=== PATIENT | female | born 1985 | race Caucasian/White ===

== ENCOUNTER 2018-08-12 15:11 | Emergency (ER) | payer MEDICAID ==
[~2018-08-12] VITALS: Ht 170.2 cm; Wt 78.2 kg
[2018-08-12 15:23] VITALS: BP 132/89
[2018-08-12] MEDS ORDERED: MUPI22OI30 TOP (15:52)
[2018-08-12] MEDS ORDERED: DOXY100C2 PO (15:52)
== END 2018-08-12 16:03 | disposition home or self-care (01) ==
LOC: ER 15:12
DX: S81.802A Unspecified open wound, left lower leg, initial encounter (principal); R22.42 Localized swelling, mass and lump, left lower limb; Z88.1 Allergy status to other antibiotic agents; Z79.899 Other long term (current) drug therapy; X58.XXXA Exposure to other specified factors, initial encounter; Y93.89 Activity, other specified; Y92.89 Other specified places as the place of occurrence of the external cause; Y99.8 Other external cause status
CPT/HCPCS: 99283

== ENCOUNTER 2018-10-06 03:22 | Emergency (ER) | payer MEDICAID ==
[~2018-10-06] VITALS: Ht 170.2 cm; Wt 72.2 kg
[2018-10-06 03:25] VITALS: BP 120/77
[2018-10-06 03:52] LABS: URINE HCG NEGATIVE (NEG)
[2018-10-06 03:56] LABS: CLARITY,URINE SLIGHTLY CLOUDY (Clear); COLOR,URINE YELLOW (Yellow); GLUCOSE, URINE NEGATIVE (Neg); KETONES,URINE NEGATIVE (Neg); LEUKOCYTE ESTERASE ,URINE NEGATIVE (Neg); NITRITES, URINE NEGATIVE (Neg); OCCULT BLOOD,URINE NEGATIVE (Neg); PH,URINE 8.5 (4.8-8.0); PROTEIN,URINE TRACE mg/dl (Neg); UROBILINOGEN,URINE 0.2 E.U/dL (0.2-1.0)
[2018-10-06 04:01] LABS: UA COLLECTION TYPE VOIDED
[2018-10-06 04:02] LABS: BACTERIA,URINE FEW /HPF (Neg); MUCUS STRANDS FEW /LPF (Neg); RBC,URINE NONE SEEN /HPF (0-2); SQUAMOUS EPITHELIAL CELL,UR MODERATE /LPF (FEW); WBC,URINE NONE SEEN /HPF (0-4)
[2018-10-06] MEDS ORDERED: ketorolac trometh inj. 60 MG/2 ML VIAL IM ONE (04:15)
== END 2018-10-06 04:29 | disposition home or self-care (01) ==
LOC: ER 03:23
DX: R10.32 Left lower quadrant pain (principal); J45.909 Unspecified asthma, uncomplicated; Z88.1 Allergy status to other antibiotic agents
CPT/HCPCS: 81001; 81025; 96372; 99283; J1885

== ENCOUNTER 2018-12-03 08:46 | Emergency (ER) | payer MEDICAID ==
[~2018-12-03] VITALS: Ht 170.2 cm; Wt 75.0 kg
[2018-12-03 09:02] VITALS: BP 129/89
== END 2018-12-03 10:04 | disposition home or self-care (01) ==
LOC: ER 08:46
DX: N64.59 Other signs and symptoms in breast (principal); J45.909 Unspecified asthma, uncomplicated; Z88.1 Allergy status to other antibiotic agents
CPT/HCPCS: 99281

== ENCOUNTER 2019-07-04 13:53 | Emergency (ER) | payer MEDICAID ==
[~2019-07-04] VITALS: Ht 170.2 cm; Wt 69.0 kg
[2019-07-04 14:17] VITALS: BP 111/71
[2019-07-04] MEDS ORDERED: CLIN35GE3 TP (16:03)
== END 2019-07-04 16:15 | disposition home or self-care (01) ==
LOC: ER 13:54
DX: L70.9 Acne, unspecified (principal); J45.909 Unspecified asthma, uncomplicated; F31.9 Bipolar disorder, unspecified; Z88.1 Allergy status to other antibiotic agents; Z79.2 Long term (current) use of antibiotics
CPT/HCPCS: 99283

== ENCOUNTER 2020-04-13 12:54 | Emergency (ER) | payer MEDICAID ==
[~2020-04-13] VITALS: Ht 170.2 cm; Wt 54.8 kg
[~2020-04-13 12:54] MED LIST: CLIN35GE3 TP
[2020-04-13 12:55] VITALS: BP 113/80
[2020-04-13] MEDS ORDERED: pramoxine 1% foam spray 15gm TP PRN (14:05)
== END 2020-04-13 14:46 | disposition home or self-care (01) ==
LOC: ER 12:55
DX: K64.9 Unspecified hemorrhoids (principal); J45.909 Unspecified asthma, uncomplicated; F31.9 Bipolar disorder, unspecified; Z98.890 Other specified postprocedural states; Z88.1 Allergy status to other antibiotic agents; Z79.899 Other long term (current) drug therapy
CPT/HCPCS: 99282

== ENCOUNTER 2021-07-20 02:11 | Emergency (ER) | payer MEDICAID ==
[~2021-07-20] VITALS: Ht 175.3 cm; Wt 60.0 kg
[2021-07-20] MEDS ORDERED: normal saline 1000ml 1,000 ML IV ONE (02:20)
[2021-07-20] MEDS ORDERED: LORazepam 2 mg/ml vial IV ONE (02:20)
[2021-07-20] MEDS ORDERED: normal saline 1000ML IV soln IVB ONE (02:20)
[2021-07-20] MEDS ORDERED: LORazepam 1 MG tablet PO ONE (02:40)
[2021-07-20] MEDS: LORazepam 1 MG tablet PO ONE ×2 (02:45→02:53)
[2021-07-20] MEDS ORDERED: haloperidol lactate 5mg/ml inj IM ONE ×2 (03:05→03:10)
[2021-07-20] MEDS ORDERED: diphenhydrAMINE 50 mg/ml inj IM ONE ×2 (03:05→03:10)
[2021-07-20] MEDS ORDERED: LORazepam 2 mg/ml vial IM ONE ×2 (03:10)
[2021-07-20 04:03] LABS: URINE HCG NEGATIVE (NEG)
[2021-07-20 04:07] LABS: CLARITY,URINE SLIGHTLY CLOUDY (Clear); COLOR,URINE YELLOW (Yellow); UA COLLECTION TYPE CLN CATCH MIDSTREAM
[2021-07-20 04:08] LABS: GLUCOSE, URINE NEGATIVE (Neg); KETONES,URINE TRACE mg/dl (Neg); LEUKOCYTE ESTERASE ,URINE NEGATIVE (Neg); NITRITES, URINE NEGATIVE (Neg); OCCULT BLOOD,URINE TRACE-INTACT (Neg); PROTEIN,URINE TRACE mg/dl (Neg); UROBILINOGEN,URINE 0.2 E.U/dL (0.2-1.0)
[2021-07-20 04:12] LABS: BACTERIA,URINE 2+ /HPF (Neg); MUCUS STRANDS MODERATE /LPF (Neg); SQUAMOUS EPITHELIAL CELL,UR MODERATE /LPF (FEW); TRANSITIONAL EPI CELLS,URINE FEW /HPF
[2021-07-20 04:14] LABS: URINE AMPHETAMINE SCREEN POSITIVE (Neg); URINE BARBITUATE SCREEN NEGATIVE (Neg); URINE BENZODIAZEPINES SCREEN NEGATIVE (Neg); URINE CANNABINOID SCREEN NEGATIVE (Neg); URINE COCAINE SCREEN NEGATIVE (Neg); URINE METHADONE SCREEN NEGATIVE (Neg); URINE OPIATE SCREEN NEGATIVE (Neg); URINE PHENCYCLIDINE SCREEN NEGATIVE (Neg)
[2021-07-20 04:54] LABS: BASOPHILS % (AUTO) 0.5 % (0-1); EOSINOPHILS % (AUTO) 0.1 % (0-6); HEMATOCRIT 43.2 % (35.0-45.0); HEMOGLOBIN 14.9 g/dl (12.0-16.0); LYMPHOCYTES # (AUTO) 1.4 X10'3 (1.1-4.8); LYMPHOCYTES % (AUTO) 14.4 % (21-51); MEAN CORPUSCULAR HEMOGLOBIN 32.4 PG (27.0-31.0); MEAN CORPUSCULAR HGB CONC 34.4 g/dL (33.0-36.5); MEAN CORPUSCULAR VOLUME 94.1 FL (78-98); MEAN PLATELET VOLUME 7.9 FL (7.4-10.4); MONOCYTES # (AUTO) 0.6 X10'3 (0-0.9); MONOCYTES % (AUTO) 5.8 % (2-12); NEUTROPHILS # (AUTO) 7.8 X10'3 (1.8-7.7); NEUTROPHILS % (AUTO) 79.2 % (42-75); PLATELET COUNT 268 X10'3 (140-440); RED BLOOD COUNT 4.59 X10'6 (4.20-5.60); RED CELL DISTRIBUTION WIDTH 13.3 % (11.5-14.5); WHITE BLOOD COUNT 9.8 X10'3 (4.5-11.0)
[2021-07-20 05:04] LABS: ALANINE AMINOTRANSFERASE 30 U/L (12-78); ALBUMIN 3.9 G/DL (3.4-5.0); ALBUMIN/GLOBULIN RATIO 1.1 (1.1-1.5); ALKALINE PHOSPHATASE 85 IU/L (46-116); ANION GAP 16 (8-16); ASPARTATE AMINO TRANSFERASE 44 U/L (10-37); BILIRUBIN,TOTAL 0.4 MG/DL (0.1-1.0); BLOOD UREA NITROGEN 15 MG/DL (7-18); BUN/CREATININE RATIO 16.9 (6.6-38.0); CALCIUM 8.9 MG/DL (8.5-10.1); CHLORIDE 107 MMOL/L (99-107); CREATININE 0.89 MG/DL (0.40-0.90); GLUCOSE 99 MG/DL (70-104); POTASSIUM 3.7 MMOL/L (3.5-5.1); SODIUM 148 MMOL/L (135-145); TOTAL CARBON DIOXIDE 25.4 MMOL/L (24-32); TOTAL PROTEIN 7.5 G/DL (6.4-8.2); eGFR 73 ML/MIN
[2021-07-20 05:14] LABS: ETHANOL < 0.010 GM/DL (0.0-0.010)
[2021-07-20 05:15] LABS: CREATINE KINASE 1149 U/L (26-192)
--- NOTE | 2021-07-20 12:09 | NUR ---
Patient sleeping on right side. No distress observed. Will evaluate patient when she awakens. Continue to monitor.
--- NOTE | 2021-07-20 13:10 | NUR ---
Patient offered lunch and patient slept through lunch. Continue to monitor.
--- NOTE | 2021-07-20 15:13 | NUR ---
Patient continues to sleep supine. No distress observed. Continue to monitor.
--- NOTE | 2021-07-20 20:48 | NUR ---
pt slept thru dinner, does not want to wake up and discuss anything.
--- NOTE | 2021-07-20 23:00 | NUR ---
pt appears to be sleeping, no s/s of distress noted.
--- NOTE | 2021-07-21 01:00 | NUR ---
pt appears to be sleeping, no s/s of distress noted.
--- NOTE | 2021-07-21 01:42 | NUR ---
pt awoke asking for food and a sanitary napkin. pt denies being suicidal or hearing voices.
--- NOTE | 2021-07-21 02:59 | NUR ---
pt is sleeping, needs are met.
--- NOTE | 2021-07-21 06:25 | NUR ---
Received patient sleeping comfortably, respirations even and unlabored.
--- NOTE | 2021-07-21 08:30 | NUR ---
Pt awake eating breakfast. [facility] at bedside. No distress or behaviors noted.
[2021-07-21 11:19] VITALS: BP 109/70
--- NOTE | 2021-07-21 11:31 | NUR ---
DISCHARGE NOTE: Pt was discharged from unit at 1030. Pt left with all personal belongings and was given weather appropriate clothing. Discharge instructions were reviewed with pt and ETOH/Substance abuse resources were given. Pt was A&Ox4. Yellow cab was called for pt and ETA for berry picker machine operator was 1040. Pt ambulated independently to outside round-about.
== END 2021-07-21 11:35 | disposition home or self-care (01) ==
LOC: ER 02:11
DX: F31.9 Bipolar disorder, unspecified (principal); R00.0 Tachycardia, unspecified; J45.909 Unspecified asthma, uncomplicated; Z98.890 Other specified postprocedural states; Z88.1 Allergy status to other antibiotic agents; Z79.2 Long term (current) use of antibiotics
CPT/HCPCS: 36415; 80053; 80305; 80320; 81001; 81025; 82550; 84145; 84443; 85025; 87088; 93005; 96360; 96361; 96372; 99284; J1200; J1630; J2060; J7030

== ENCOUNTER 2021-08-14 05:17 | Emergency (ER) | payer MEDICAID ==
[~2021-08-14] VITALS: Ht 167.6 cm; Wt 63.6 kg
[2021-08-14] MEDS ORDERED: haloperidol lactate 5mg/ml inj IM ONE (05:30)
[2021-08-14] MEDS ORDERED: diphenhydrAMINE 50 mg/ml inj IM ONE (05:30)
[2021-08-14] MEDS ORDERED: LORazepam 2 mg/ml vial IM ONE (05:30)
--- NOTE | 2021-08-14 06:33 | NUR ---
Report to ILENE Duenas
[2021-08-14 08:18] LABS: BASOPHILS % (AUTO) 0.3 % (0-1); EOSINOPHILS % (AUTO) 0 % (0-6); HEMATOCRIT 45.5 % (35.0-45.0); HEMOGLOBIN 15.5 g/dl (12.0-16.0); LYMPHOCYTES # (AUTO) 0.9 X10'3 (1.1-4.8); LYMPHOCYTES % (AUTO) 6.9 % (21-51); MEAN CORPUSCULAR HEMOGLOBIN 31.9 PG (27.0-31.0); MEAN CORPUSCULAR HGB CONC 33.9 g/dL (33.0-36.5); MEAN PLATELET VOLUME 7.6 FL (7.4-10.4); MONOCYTES # (AUTO) 0.8 X10'3 (0-0.9); MONOCYTES % (AUTO) 5.8 % (2-12); NEUTROPHILS # (AUTO) 11.7 X10'3 (1.8-7.7); PLATELET COUNT 313 X10'3 (140-440); RED BLOOD COUNT 4.85 X10'6 (4.20-5.60); RED CELL DISTRIBUTION WIDTH 13.2 % (11.5-14.5); WHITE BLOOD COUNT 13.4 X10'3 (4.5-11.0)
[2021-08-14 08:53] LABS: BILIRUBIN,TOTAL 0.4 MG/DL (0.1-1.0); CHLORIDE 108 MMOL/L (99-107); CREATININE 1.08 MG/DL (0.40-0.90); POTASSIUM 3.9 MMOL/L (3.5-5.1); SODIUM 142 MMOL/L (135-145); eGFR 58 ML/MIN
[2021-08-14 08:59] LABS: ALANINE AMINOTRANSFERASE 29 U/L (12-78); ALBUMIN 3.8 G/DL (3.4-5.0); ALBUMIN/GLOBULIN RATIO 1.1 (1.1-1.5); ALKALINE PHOSPHATASE 82 IU/L (46-116); ANION GAP 9 (8-16); ASPARTATE AMINO TRANSFERASE 22 U/L (10-37); TOTAL CARBON DIOXIDE 25.1 MMOL/L (24-32); TOTAL PROTEIN 7.3 G/DL (6.4-8.2)
[2021-08-14 09:00] LABS: ETHANOL < 0.010 GM/DL (0.0-0.010)
[2021-08-14 09:01] LABS: GLUCOSE 73 MG/DL (70-104)
[2021-08-14 09:04] LABS: BLOOD UREA NITROGEN 14 MG/DL (7-18)
--- NOTE | 2021-08-14 14:20 | NUR ---
Swallow eval Pt. was able to tolerate thin liquid; Per Dr. Renee able to place diet order
[2021-08-14 17:47] LABS: URINE HCG NEGATIVE (NEG)
[2021-08-14 18:07] LABS: URINE AMPHETAMINE SCREEN POSITIVE (Neg); URINE BARBITUATE SCREEN NEGATIVE (Neg); URINE BENZODIAZEPINES SCREEN NEGATIVE (Neg); URINE CANNABINOID SCREEN POSITIVE (Neg); URINE COCAINE SCREEN NEGATIVE (Neg); URINE METHADONE SCREEN NEGATIVE (Neg); URINE OPIATE SCREEN NEGATIVE (Neg); URINE PHENCYCLIDINE SCREEN NEGATIVE (Neg)
--- NOTE | 2021-08-14 22:29 | NUR ---
Pt is a 36 yo female, newly admitted for on a 5150 (5150 document on pt's chart) for mental health evaluation, Packet being sent to mental health. [facility]. Pt was brought into ER by EMS and police. Pt was witnessed running and screaming through the streets. She told EMS/Police she has a HX of BiPolar and has not taken her medications. Pt states "I do not know what medications I am on". Currently, pt is observed laying in bed with blankets over her head. answers some questions in one or two words. Uncooperative. Pt is afebrile, AAO times 4, steady gait (ambulated from ER to overflow bed 21. Pt denies hearing voiced and halliciniations. VSS HR 87, good pulses, no edema. Breath sounds WNL, no cough noted, COVID NEG 08/14/2021. Denies GI issues, LBM unknown. Voids freely. Road rash on left hip. No medications ordered. Pt remains safe. Continue to monitor.
--- NOTE | 2021-08-15 00:16 | NUR ---
pt observed sleeping
--- NOTE | 2021-08-15 09:51 | NUR ---
Pt. resting comfortably in bed.
--- NOTE | 2021-08-15 10:21 | NUR ---
Pt. resting in bed. Observed sleeping
--- NOTE | 2021-08-15 12:01 | NUR ---
Pt. resting. Observed sleeping.
--- NOTE | 2021-08-15 15:04 | NUR ---
Pt. resting comfortably in bed
--- NOTE | 2021-08-15 16:20 | NUR ---
Per. Dr. Benson kolb to place tylenol order for Dane [address]es' [address] rash
[2021-08-15] MEDS: acetaminophen 325mg tablet PO PRN (16:42)
--- NOTE | 2021-08-15 17:03 | NUR ---
Pt. safe and resting in bed
--- NOTE | 2021-08-15 21:30 | NUR ---
Asked ER Physician for pain med, orders received for 1x Toradol 15mg IM.
[2021-08-15 22:30] LABS: COLOR,URINE YELLOW (Yellow); GLUCOSE, URINE NEGATIVE (Neg); KETONES,URINE NEGATIVE (Neg); LEUKOCYTE ESTERASE ,URINE TRACE (Neg); NITRITES, URINE NEGATIVE (Neg); OCCULT BLOOD,URINE NEGATIVE (Neg); PROTEIN,URINE NEGATIVE (Neg); UROBILINOGEN,URINE 0.2 E.U/dL (0.2-1.0)
[2021-08-15 22:31] LABS: CLARITY,URINE SLIGHTLY CLOUDY (Clear); UA COLLECTION TYPE CLN CATCH MIDSTREAM
[2021-08-15 22:45] LABS: BACTERIA,URINE FEW /HPF (Neg); RBC,URINE NONE SEEN /HPF (0-2); SQUAMOUS EPITHELIAL CELL,UR MODERATE /LPF (FEW); WBC,URINE 30-50 /HPF (0-4)
[2021-08-15 22:46] LABS: MUCUS STRANDS MANY /LPF (Neg)
[2021-08-15] MEDS ORDERED: ketorolac trometh inj. 60 MG/2 ML VIAL IM ONE (23:00)
--- NOTE | 2021-08-15 23:59 | NUR ---
pt has been accepted to [facility]. transport tomorrow.
[2021-08-16] MEDS: acetaminophen 325mg tablet PO PRN (00:35)
[2021-08-16 06:00] VITALS: BP 93/61
--- NOTE | 2021-08-16 07:32 | NUR ---
Pateint sleeping on right side, a few mins ago did come to nurses station [facility] about discharge plans, "I have a court date tomorrow, my wallet is with my dad and I don't want him to have access to my debt card". Patient advise that she can call in regards to her court date and as far as her personal belongings she will have to deal with that when discharged.
[2021-08-16] MEDS ORDERED: nicotine 7mg patch - 24hr TD SCH (08:00)
--- NOTE | 2021-08-16 08:09 | NUR ---
[facility] accepted patient and [facility] will transport approx 0830
== END 2021-08-16 08:32 ==
LOC: MERGE 05:18 → EDBD 05:18 → ER 05:18
DX: F31.9 Bipolar disorder, unspecified (principal); F17.210 Nicotine dependence, cigarettes, uncomplicated; F12.10 Cannabis abuse, uncomplicated; F15.10 Other stimulant abuse, uncomplicated; Z20.822 Contact with and (suspected) exposure to COVID-19
CPT/HCPCS: 36415; 80053; 80305; 80320; 81001; 81025; 84443; 85025; 87635; 96372; 99285; C9803; J1200; J1630; J1885; J2060

== ENCOUNTER 2021-10-19 21:55 | Emergency (ER) | payer MEDICAID ==
[~2021-10-19] VITALS: Ht 170.2 cm; Wt 63.6 kg
[2021-10-19 22:07] VITALS: BP 101/77
[2021-10-19] MEDS ORDERED: AMOX-117 PO (22:47)
[2021-10-19] MEDS ORDERED: IBUP-1984 PO (22:47)
[2021-10-19] MEDS ORDERED: amox tr/potassium clavulanate 875/125mg TAB PO ONE (22:50)
[2021-10-19] MEDS ORDERED: ibuprofen tablet 400 MG TABLET PO ONE (22:50)
== END 2021-10-19 23:07 | disposition home or self-care (01) ==
LOC: ER 21:56
DX: K08.89 Other specified disorders of teeth and supporting structures (principal); R11.0 Nausea; J45.909 Unspecified asthma, uncomplicated; F31.9 Bipolar disorder, unspecified; Z98.890 Other specified postprocedural states; Z88.1 Allergy status to other antibiotic agents; Z79.2 Long term (current) use of antibiotics; Z79.899 Other long term (current) drug therapy
CPT/HCPCS: 99283

== ENCOUNTER 2021-10-20 10:17 | Emergency (ER) | payer MEDICAID ==
[~2021-10-20 10:17] MED LIST changes: +AMOX-117 PO; +IBUP-1984 PO
== END 2021-10-20 11:00 | disposition left against medical advice (07) ==
LOC: ER 10:18
DX: Z53.21 Procedure and treatment not carried out due to patient leaving prior to being seen by health care provider (principal)

== ENCOUNTER 2022-01-26 18:59 | Emergency (ER) | payer MEDICAID ==
[~2022-01-26] VITALS: Ht 170.2 cm; Wt 54.5 kg
[~2022-01-26 18:59] MED LIST changes: -AMOX-117 PO; -CLIN35GE3 TP; +CLIN35GE8 TP; -IBUP-1984 PO
[2022-01-26 20:11] LABS: BASOPHILS % (AUTO) 0.4 % (0-1); EOSINOPHILS % (AUTO) 0.1 % (0-6); HEMATOCRIT 43.7 % (35.0-45.0); HEMOGLOBIN 14.7 g/dl (12.0-16.0); LYMPHOCYTES # (AUTO) 1.1 X10'3 (1.1-4.8); LYMPHOCYTES % (AUTO) 13.9 % (21-51); MEAN CORPUSCULAR HEMOGLOBIN 31.9 PG (27.0-31.0); MEAN CORPUSCULAR HGB CONC 33.6 g/dL (33.0-36.5); MEAN CORPUSCULAR VOLUME 94.9 FL (78-98); MEAN PLATELET VOLUME 8.5 FL (7.4-10.4); MONOCYTES # (AUTO) 0.2 X10'3 (0-0.9); MONOCYTES % (AUTO) 3.3 % (2-12); NEUTROPHILS # (AUTO) 6.2 X10'3 (1.8-7.7); NEUTROPHILS % (AUTO) 82.3 % (42-75); PLATELET COUNT 343 X10'3 (140-440); RED CELL DISTRIBUTION WIDTH 13.9 % (11.5-14.5); WHITE BLOOD COUNT 7.6 X10'3 (4.5-11.0)
[2022-01-26 20:18] LABS: ALANINE AMINOTRANSFERASE 22 U/L (12-78); ALBUMIN/GLOBULIN RATIO 1.3 (1.1-1.5); ALKALINE PHOSPHATASE 79 IU/L (46-116); ANION GAP 12 (8-16); ASPARTATE AMINO TRANSFERASE 17 U/L (10-37); BILIRUBIN,TOTAL 0.4 MG/DL (0.1-1.0); BLOOD UREA NITROGEN 7 MG/DL (7-18); BUN/CREATININE RATIO 5.2 (6.6-38.0); CALCIUM 9.1 MG/DL (8.5-10.1); CHLORIDE 105 MMOL/L (99-107); CREATININE 1.35 MG/DL (0.40-0.90); GLUCOSE 274 MG/DL (70-104); POTASSIUM 3.4 MMOL/L (3.5-5.1); SODIUM 138 MMOL/L (135-145); TOTAL CARBON DIOXIDE 21.4 MMOL/L (24-32); TOTAL PROTEIN 7.1 G/DL (6.4-8.2); eGFR 45 ML/MIN
[2022-01-26 20:26] LABS: BETA HCG,QUANTITATIVE < 1.0 mIU/ml; ETHANOL < 0.010 GM/DL (0.0-0.010)
--- NOTE | 2022-01-26 20:43 | NUR ---
PT WAS IN [facility]RA[facility] UPON ARRIVAL WITH EMS, RESTRAINTS E Addendum: 01/26/22 at 2042 by RPRATHER RESTRAINTS WERE REMOVED WHEN PT CALMED AND REQUESTED TO USE THE RESTROOM. PT FOLLOWING DIRECTIONS NOW
--- NOTE | 2022-01-26 20:51 | NUR ---
CLEARED PATIENTS ROOM FOR SAFETY. NO GREEN SCRUBS AVAIL,
[2022-01-26] MEDS ORDERED: acetaminophen 325mg tablet PO ONE (21:00)
[2022-01-26] MEDS ORDERED: nicotine 14mg patch - 24hr TD ONE (23:15)
--- NOTE | 2022-01-27 01:00 | NUR ---
Unable to complete full mental status exam due to patient guardedness. Patient presents as minimal, guarded, and wary. Patient changed into hospital outfit.
[2022-01-27 04:44] LABS: CLARITY,URINE CLOUDY (Clear); COLOR,URINE YELLOW (Yellow); GLUCOSE, URINE NEGATIVE (Neg); KETONES,URINE NEGATIVE (Neg); LEUKOCYTE ESTERASE ,URINE NEGATIVE (Neg); NITRITES, URINE NEGATIVE (Neg); OCCULT BLOOD,URINE NEGATIVE (Neg); PROTEIN,URINE NEGATIVE (Neg); UROBILINOGEN,URINE 0.2 E.U/dL (0.2-1.0)
[2022-01-27 04:53] LABS: UA COLLECTION TYPE NON-SPECIFIED
[2022-01-27 04:55] LABS: BACTERIA,URINE 4+ /HPF (Neg); MUCUS STRANDS MODERATE /LPF (Neg); RBC,URINE 0-2 /HPF (0-2); SQUAMOUS EPITHELIAL CELL,UR MANY /LPF (FEW); WBC,URINE 0-4 /HPF (0-4)
[2022-01-27 04:59] LABS: URINE AMPHETAMINE SCREEN POSITIVE (Neg); URINE BARBITUATE SCREEN NEGATIVE (Neg); URINE BENZODIAZEPINES SCREEN NEGATIVE (Neg); URINE CANNABINOID SCREEN POSITIVE (Neg); URINE COCAINE SCREEN NEGATIVE (Neg); URINE METHADONE SCREEN NEGATIVE (Neg); URINE OPIATE SCREEN NEGATIVE (Neg); URINE PHENCYCLIDINE SCREEN NEGATIVE (Neg)
--- NOTE | 2022-01-27 05:21 | NUR ---
Packet sent to [facility]
--- NOTE | 2022-01-27 10:20 | NUR ---
Pt ambulated from ER bed 7 to ER bed 21. Report given to ILENE Gallagher
--- NOTE | 2022-01-27 10:20 | NUR ---
Patient ambulatory from main ER to ER overflow at approximately 1015. She is A&O x4, no s/s of distress. Patient was receptive to 1:1 assessment. She endorsed that she "took too strong of a hit and had a psychotic break". Patient reported that she was on the side of the road trying to get help after her car ran out of gas when she was confronted by police. Patient noted endorsing paranoid delusions of "being followed by drug dealers" and having her phone "hacked by the FBI".
--- NOTE | 2022-01-27 12:25 | NUR ---
Patient is observed sleeping in her room at this time. Respirations even, unlabored. No s/s of distress. Will continue to monitor.
[2022-01-27] MEDS ORDERED: NO HOME MEDS (12:42)
--- NOTE | 2022-01-27 14:20 | NUR ---
Patient was observed ambulating around the unit before returning to her room. She is noted sitting on her bed quietly at this time. No s/s of distress. Will continue to monitor.
--- NOTE | 2022-01-27 15:20 | NUR ---
Sergio from [facility] called to get report on patient for possible placement at this time
--- NOTE | 2022-01-27 16:30 | NUR ---
Patient is noted sitting in her room making multiple phone calls. She was noted endorsing on the phone that her is "on his way to get her out of here". Patient reminded of 5150 hold, however, continues to call and bribe family members with money to come pick her up. Will continue to monitor.
--- NOTE | 2022-01-27 17:56 | NUR ---
Christos from [facility] called to get report on patient for possible placement at this time
--- NOTE | 2022-01-27 18:06 | NUR ---
Family, Nik Pearce,
--- NOTE | 2022-01-27 19:20 | NUR ---
Per [facility] the patient was accepted at [facility], [place] and the plan is for transport at 9PM
--- NOTE | 2022-01-27 20:26 | NUR ---
The patient has been making phone calls.
--- NOTE | 2022-01-27 20:53 | NUR ---
One to one with the patient. She was pleasant. She denies SI and added, "I was on drugs" She was made aware that she has been accepted at [facility], [place].
[2022-01-27 21:05] VITALS: BP 115/93
== END 2022-01-27 21:08 ==
LOC: ER 19:00
DX: F79 Unspecified intellectual disabilities (principal); Z20.822 Contact with and (suspected) exposure to COVID-19; F29 Unspecified psychosis not due to a substance or known physiological condition; R00.0 Tachycardia, unspecified; J45.909 Unspecified asthma, uncomplicated; F31.9 Bipolar disorder, unspecified; Z98.890 Other specified postprocedural states; Z88.1 Allergy status to other antibiotic agents
CPT/HCPCS: 36415; 80053; 80305; 80320; 81001; 82948; 84443; 84702; 85025; 87635; 99285; C9803

== ENCOUNTER 2022-02-24 09:22 | Emergency (ER) | payer MEDICAID ==
[~2022-02-24] VITALS: Ht 162.6 cm; Wt 50.0 kg
[~2022-02-24 09:22] MED LIST changes: -CLIN35GE8 TP; +NO HOME MEDS
[2022-02-24 09:26] VITALS: BP 143/103
[2022-02-24] MEDS ORDERED: olanzapine 10mg tablet PO ONE (09:35)
[2022-02-24] MEDS ORDERED: OLANZapine 2.5MG tablet PO SCH (09:35)
--- NOTE | 2022-02-24 09:37 | NUR ---
PATIENT IS WANDERING AROUND THE ER, UNABLE TO DECIDE IF SHE WANTS TO LEAVE OR STAY FOR TREATMENT. STATES SHE NEEDS TO CALL SOMEONE FOR A RIDE, THEN BECAME AGITATED AND LEFT FROM THE ER.
--- NOTE | 2022-02-24 09:44 | NUR ---
PATIENT LEFT FROM ER, THEN CAME BACK INTO THE LOBBY AND IS WANDERING AROUND. PATIENT IS DC PER ER MD AND SECURITY ESCORTED PATIENT OUT OF THE BUILDING.
[2022-02-25] MEDS ORDERED: IBUP-1984 PO (22:13)
[2022-02-25] MEDS ORDERED: LITH300C PO (22:15)
[2022-02-25] MEDS ORDERED: OLAN10TA3 PO (22:16)
[2022-02-25] MEDS ORDERED: [UNRECOGNIZED DRUG - CODE] PO (22:17)
[2022-02-28] MEDS ORDERED: NICO-907 BC (12:06)
[2022-02-28] MEDS ORDERED: HYDR-3686 PO (12:06)
[2022-02-28] MEDS ORDERED: LITH300C PO (12:06)
[2022-02-28] MEDS ORDERED: NICO-687 TD (12:06)
== END 2022-02-24 09:48 | disposition home or self-care (01) ==
LOC: ER 09:22
DX: F15.951 Other stimulant use, unspecified with stimulant-induced psychotic disorder with hallucinations (principal); J45.909 Unspecified asthma, uncomplicated; F31.9 Bipolar disorder, unspecified; Z88.1 Allergy status to other antibiotic agents
CPT/HCPCS: 99281

== ENCOUNTER 2022-07-13 13:03 | Emergency (ER) | payer MEDICAID ==
[~2022-07-13] VITALS: Ht 170.2 cm; Wt 68.0 kg
[~2022-07-13 13:03] MED LIST changes: +BUPR100T15 PO; +Lorazepam PO; +NICO-687 TD; -NO HOME MEDS; +QUET100T34 PO; +QUET25TA36 PO
[2022-07-13 13:23] VITALS: BP 118/84
[2022-07-13 15:27] LABS: ALANINE AMINOTRANSFERASE 59 U/L (12-78); ALBUMIN 3.8 G/DL (3.4-5.0); ALBUMIN/GLOBULIN RATIO 1.1 (1.1-1.5); ALKALINE PHOSPHATASE 84 IU/L (46-116); ANION GAP 8 (8-16); ASPARTATE AMINO TRANSFERASE 28 U/L (10-37); BILIRUBIN,TOTAL 0.3 MG/DL (0.1-1.0); BLOOD UREA NITROGEN 14 MG/DL (7-18); BUN/CREATININE RATIO 20.6 (6.6-38.0); CALCIUM 9.1 MG/DL (8.5-10.1); CHLORIDE 106 MMOL/L (99-107); CREATININE 0.68 MG/DL (0.40-0.90); GLUCOSE 96 MG/DL (70-104); SODIUM 141 MMOL/L (135-145); TOTAL PROTEIN 7.2 G/DL (6.4-8.2); eGFR > 90 ML/MIN
[2022-07-13 15:28] LABS: BASOPHILS # (AUTO) 0.1 X10'3 (0-0.2); BASOPHILS % (AUTO) 0.8 % (0-1); EOSINOPHILS % (AUTO) 0.2 % (0-6); HEMATOCRIT 40.5 % (35.0-45.0); HEMOGLOBIN 13.9 g/dl (12.0-16.0); LYMPHOCYTES # (AUTO) 1.7 X10'3 (1.1-4.8); LYMPHOCYTES % (AUTO) 19.7 % (21-51); MEAN CORPUSCULAR HEMOGLOBIN 32.2 PG (27.0-31.0); MEAN CORPUSCULAR HGB CONC 34.3 g/dL (33.0-36.5); MEAN PLATELET VOLUME 7.3 FL (7.4-10.4); MONOCYTES # (AUTO) 0.4 X10'3 (0-0.9); MONOCYTES % (AUTO) 4.4 % (2-12); NEUTROPHILS # (AUTO) 6.3 X10'3 (1.8-7.7); NEUTROPHILS % (AUTO) 74.9 % (42-75); PLATELET COUNT 296 X10'3 (140-440); RED BLOOD COUNT 4.31 X10'6 (4.20-5.60); RED CELL DISTRIBUTION WIDTH 14.4 % (11.5-14.5); WHITE BLOOD COUNT 8.5 X10'3 (4.5-11.0)
[2022-07-13] MEDS ORDERED: OLANZapine 2.5MG tablet PO ONE (15:35)
[2022-07-13] MEDS ORDERED: OLAN5TAB3 PO (15:40)
[2022-07-13 16:14] LABS: CLARITY,URINE SLIGHTLY CLOUDY (Clear); COLOR,URINE YELLOW (Yellow); GLUCOSE, URINE NEGATIVE (Neg); KETONES,URINE NEGATIVE (Neg); LEUKOCYTE ESTERASE ,URINE SMALL (Neg); NITRITES, URINE NEGATIVE (Neg); OCCULT BLOOD,URINE NEGATIVE (Neg); PROTEIN,URINE NEGATIVE (Neg); UROBILINOGEN,URINE 0.2 E.U/dL (0.2-1.0)
[2022-07-13 16:15] LABS: UA COLLECTION TYPE CLN CATCH MIDSTREAM
[2022-07-13 16:20] LABS: MUCUS STRANDS FEW /LPF (Neg); SQUAMOUS EPITHELIAL CELL,UR MANY /LPF (FEW)
[2022-07-13 16:21] LABS: WBC CLUMPS,URINE FEW /HPF (NEGATIVE)
[2022-07-13 16:22] LABS: BACTERIA,URINE FEW /HPF (Neg); RBC,URINE NONE SEEN /HPF (0-2)
[2022-07-13 16:24] LABS: URINE AMPHETAMINE SCREEN NEGATIVE (Neg); URINE BARBITUATE SCREEN NEGATIVE (Neg); URINE BENZODIAZEPINES SCREEN NEGATIVE (Neg); URINE CANNABINOID SCREEN NEGATIVE (Neg); URINE COCAINE SCREEN NEGATIVE (Neg); URINE METHADONE SCREEN NEGATIVE (Neg); URINE OPIATE SCREEN NEGATIVE (Neg); URINE PHENCYCLIDINE SCREEN NEGATIVE (Neg)
--- NOTE | 2022-07-13 16:27 | NUR ---
lab rejected pt urine for culture. Pt provided food and drink at this time. pending MD kent-colten
[2022-07-13] MEDS ORDERED: cephalexin 500mg capsule PO ONE (16:30)
[2022-07-13] MEDS ORDERED: CEPH500C81 PO (16:31)
== END 2022-07-13 17:28 | disposition home or self-care (01) ==
LOC: ER 13:04
DX: F20.9 Schizophrenia, unspecified (principal); N39.0 Urinary tract infection, site not specified; R31.9 Hematuria, unspecified; J45.909 Unspecified asthma, uncomplicated; F15.20 Other stimulant dependence, uncomplicated
CPT/HCPCS: 36415; 80053; 80305; 81001; 85025; 99283

== ENCOUNTER 2023-01-04 15:31 | Emergency (ER) | payer MEDICAID ==
[~2023-01-04] VITALS: Ht 170.2 cm; Wt 80.0 kg
[~2023-01-04 15:31] MED LIST changes: +OLAN5TAB3 PO
[2023-01-04 15:42] VITALS: BP 138/99
[2023-01-04] MEDS ORDERED: CEPH250T PO (16:06)
[2023-01-04] MEDS ORDERED: cephalexin 500mg capsule PO ONE (16:10)
== END 2023-01-04 17:02 | disposition home or self-care (01) ==
LOC: ER 15:31
DX: L03.211 Cellulitis of face (principal); F32.A Depression, unspecified; F15.10 Other stimulant abuse, uncomplicated; J45.909 Unspecified asthma, uncomplicated; Z88.1 Allergy status to other antibiotic agents; Z88.8 Allergy status to other drugs, medicaments and biological substances; Z79.899 Other long term (current) drug therapy
CPT/HCPCS: 99283

== ENCOUNTER 2023-01-17 12:31 | Emergency (ER) | payer MEDICAID ==
[~2023-01-17] VITALS: Ht 162.6 cm; Wt 58.2 kg
[2023-01-17] MEDS ORDERED: diphenhydrAMINE 50 mg/ml inj IM ONE (13:35)
[2023-01-17] MEDS ORDERED: haloperidol lactate 5mg/ml inj IM ONE (13:35)
[2023-01-17] MEDS ORDERED: LORazepam 2 mg/ml vial IM ONE (13:35)
--- NOTE | 2023-01-17 14:03 | NUR ---
attempt ekg, pt unpredictable at this time. will attempt again.
[2023-01-17 14:22] LABS: BASOPHILS # (AUTO) 0.1 X10'3 (0-0.2); BASOPHILS % (AUTO) 0.5 % (0-1); EOSINOPHILS % (AUTO) 0.1 % (0-6); HEMATOCRIT 46.6 % (35.0-45.0); HEMOGLOBIN 15.6 g/dl (12.0-16.0); LYMPHOCYTES % (AUTO) 6.5 % (21-51); MEAN CORPUSCULAR HEMOGLOBIN 31.1 PG (27.0-31.0); MEAN CORPUSCULAR HGB CONC 33.4 g/dL (33.0-36.5); MEAN CORPUSCULAR VOLUME 93.1 FL (78-98); MEAN PLATELET VOLUME 7.2 FL (7.4-10.4); MONOCYTES # (AUTO) 0.7 X10'3 (0-0.9); MONOCYTES % (AUTO) 4.7 % (2-12); NEUTROPHILS # (AUTO) 13.2 X10'3 (1.8-7.7); NEUTROPHILS % (AUTO) 88.2 % (42-75); PLATELET COUNT 373 X10'3 (140-440); RED BLOOD COUNT 5.01 X10'6 (4.20-5.60); RED CELL DISTRIBUTION WIDTH 14.3 % (11.5-14.5)
[2023-01-17 14:29] LABS: URINE HCG NEGATIVE (NEG)
[2023-01-17 14:44] LABS: CLARITY,URINE CLOUDY (Clear); COLOR,URINE YELLOW (Yellow); GLUCOSE, URINE NEGATIVE (Neg); KETONES,URINE 15 mg/dl (Neg); LEUKOCYTE ESTERASE ,URINE MODERATE (Neg); NITRITES, URINE POSITIVE (Neg); OCCULT BLOOD,URINE LARGE (Neg); PROTEIN,URINE 100 mg/dl (Neg)
[2023-01-17 14:46] LABS: UA COLLECTION TYPE CLN CATCH MIDSTREAM
[2023-01-17 14:52] LABS: ALANINE AMINOTRANSFERASE 24 U/L (12-78); ALBUMIN 4.4 G/DL (3.4-5.0); ALBUMIN/GLOBULIN RATIO 1.2 (1.1-1.5); ALKALINE PHOSPHATASE 108 IU/L (46-116); ANION GAP 13 (8-16); ASPARTATE AMINO TRANSFERASE 19 U/L (10-37); BILIRUBIN,TOTAL 0.4 MG/DL (0.1-1.0); BLOOD UREA NITROGEN 18 MG/DL (7-18); BUN/CREATININE RATIO 14.8 (10.0-20.0); CALCIUM 9.7 MG/DL (8.5-10.1); CHLORIDE 106 MMOL/L (99-107); CREATININE 1.22 MG/DL (0.40-0.90); GLUCOSE 132 MG/DL (70-104); POTASSIUM 4.2 MMOL/L (3.5-5.1); SODIUM 146 MMOL/L (135-145); TOTAL CARBON DIOXIDE 27.2 MMOL/L (24-32); TOTAL PROTEIN 8.1 G/DL (6.4-8.2); eGFR 50 ML/MIN
[2023-01-17 14:53] LABS: ETHANOL < 0.010 GM/DL (0.0-0.010); WBC,URINE TNTC /HPF (0-4)
[2023-01-17 14:54] LABS: BACTERIA,URINE 3+ /HPF (Neg); RBC,URINE TNTC /HPF (0-2); SQUAMOUS EPITHELIAL CELL,UR MANY /LPF (FEW)
[2023-01-17 14:55] LABS: MUCUS STRANDS MODERATE /LPF (Neg)
[2023-01-17 15:20] LABS: URINE AMPHETAMINE SCREEN POSITIVE (Neg); URINE BARBITUATE SCREEN NEGATIVE (Neg); URINE BENZODIAZEPINES SCREEN NEGATIVE (Neg); URINE CANNABINOID SCREEN POSITIVE (Neg); URINE COCAINE SCREEN NEGATIVE (Neg); URINE METHADONE SCREEN NEGATIVE (Neg); URINE OPIATE SCREEN POSITIVE (Neg); URINE PHENCYCLIDINE SCREEN NEGATIVE (Neg)
[2023-01-17] MEDS ORDERED: sulfamethoxazole/trimethoprim DS (800/160mg) tablet PO ONE (15:40)
[2023-01-17] MEDS ORDERED: SULF1TAB45 PO (16:13)
--- NOTE | 2023-01-17 16:40 | NUR ---
Patient ambulatory, steady gait from Main ED to ED OF bed 26. Patient calm and no distress observed. Continue to monitor.
--- NOTE | 2023-01-17 18:57 | NUR ---
Patient sleeping. No distress observed. Continue to monitor.
[2023-01-17] MEDS ORDERED: OLAN5TAB5 PO (20:20)
[2023-01-17] MEDS ORDERED: HYDR-3686 PO (20:20)
--- NOTE | 2023-01-17 21:03 | NUR ---
Patient at dinner earlier is not sleeping on right side. No distress observed. Continue to monitor.
--- NOTE | 2023-01-17 23:09 | NUR ---
Patient sleeping on left side with covers over her face. No distress observed. Continue to monitor.
--- NOTE | 2023-01-18 01:11 | NUR ---
Patient sleeping supine. No distress observed. Continue to monitor.
--- NOTE | 2023-01-18 03:33 | NUR ---
Patient sleeping supine. No distress observed. Continue to monitor.
--- NOTE | 2023-01-18 04:22 | NUR ---
Faxed [facility] packet.
[2023-01-18] MEDS ORDERED: OLANZapine 5mg rapidly disint. tablet PO PRN (05:25)
--- NOTE | 2023-01-18 07:00 | NUR ---
Received Pt in bed sleeping w/o distress.
--- NOTE | 2023-01-18 09:05 | NUR ---
Pt woke and ate breakfast well. She got up and took a book to her bed and appears to have fallen asleep again. Pt spoke clearly and followed instructions well.
--- NOTE | 2023-01-18 11:12 | NUR ---
Pt awake and used phone. Pt angry with person on phone and hung up. Pt cooperative with staff and asked for something to write with. She got a book to read from unit supply.
--- NOTE | 2023-01-18 13:32 | NUR ---
Pt ate lunch and is now sleeping in bed.
[2023-01-18] MEDS ORDERED: cephalexin 500mg capsule PO ONE (13:38)
[2023-01-18] MEDS ORDERED: NICOTINE POLACRILEX 2 MG LOZENGE BC PRN (14:00)
--- NOTE | 2023-01-18 14:35 | NUR ---
Pt given Keflex and nicotine lozenge after consultation with . Pt took meds w/o issue and returned to sleeping in bed w/o distress.
--- NOTE | 2023-01-18 15:01 | NUR ---
Pt accepted to [facility] at 1346. Accepted by Mayra Mohr NP. Will be picked up by [facility] between 1900 and 1999
[2023-01-18 17:35] VITALS: BP 105/74
--- NOTE | 2023-01-18 18:38 | NUR ---
Pt in assigned bed lying on left side, RR even and unlabored. Pt in NAD.
--- NOTE | 2023-01-18 19:36 | NUR ---
Nabeel Buchanan is here to [facility] Security here to escort out.
[2023-01-18] MEDS ORDERED: cephalexin 250mg capsule PO SCH (20:00)
== END 2023-01-18 20:02 ==
LOC: ER 12:32
DX: N39.0 Urinary tract infection, site not specified (principal); Z20.822 Contact with and (suspected) exposure to COVID-19; F11.10 Opioid abuse, uncomplicated; J45.909 Unspecified asthma, uncomplicated; F31.9 Bipolar disorder, unspecified; F15.20 Other stimulant dependence, uncomplicated; Z88.1 Allergy status to other antibiotic agents; Z91.041 Radiographic dye allergy status
CPT/HCPCS: 36415; 80053; 80305; 80320; 81001; 81025; 84443; 85025; 87811; 96372; 99285; J1200; J1630; J2060

== ENCOUNTER 2023-02-09 23:42 | Emergency (ER) | payer MEDICAID ==
[~2023-02-09] VITALS: Ht 170.2 cm; Wt 72.7 kg
[~2023-02-09 23:42] MED LIST changes: -BUPR100T15 PO; -Lorazepam PO; -NICO-687 TD; -OLAN5TAB3 PO; +OLAN5TAB5 PO; -QUET100T34 PO; -QUET25TA36 PO
[2023-02-10] MEDS ORDERED: OLAN10TA3 PO (00:20)
[2023-02-10] MEDS ORDERED: LITH300T5 PO (00:20)
[2023-02-10] MEDS ORDERED: diphenhydrAMINE 50 mg/ml inj IM ONE (00:25)
[2023-02-10] MEDS ORDERED: LORazepam 2 mg/ml vial IM ONE (00:25)
[2023-02-10] MEDS ORDERED: haloperidol lactate 5mg/ml inj IM ONE (00:25)
--- NOTE | 2023-02-10 01:10 | NUR ---
pt moved from rm 4 to rm 14, pt ambulated well and cooperative with staff.
--- NOTE | 2023-02-10 01:17 | NUR ---
ALL TASKS COMPLETE, GETTING PT FOOD/DRINK.
--- NOTE | 2023-02-10 01:17 | NUR ---
snacks and drink provided
[2023-02-10 01:35] LABS: CLARITY,URINE CLOUDY (Clear); COLOR,URINE YELLOW (Yellow); GLUCOSE, URINE NEGATIVE (Neg); KETONES,URINE NEGATIVE (Neg); LEUKOCYTE ESTERASE ,URINE NEGATIVE (Neg); NITRITES, URINE NEGATIVE (Neg); OCCULT BLOOD,URINE NEGATIVE (Neg); PROTEIN,URINE NEGATIVE (Neg); UROBILINOGEN,URINE 0.2 E.U/dL (0.2-1.0)
[2023-02-10 01:36] LABS: URINE HCG NEGATIVE (NEG)
[2023-02-10 01:38] LABS: BASOPHILS # (AUTO) 0.1 X10'3 (0-0.2); BASOPHILS % (AUTO) 0.6 % (0-1); EOSINOPHILS % (AUTO) 0.1 % (0-6); HEMATOCRIT 44.2 % (35.0-45.0); HEMOGLOBIN 15.1 g/dl (12.0-16.0); LYMPHOCYTES # (AUTO) 0.8 X10'3 (1.1-4.8); LYMPHOCYTES % (AUTO) 7.8 % (21-51); MEAN CORPUSCULAR HEMOGLOBIN 32.4 PG (27.0-31.0); MEAN CORPUSCULAR HGB CONC 34.1 g/dL (33.0-36.5); MEAN CORPUSCULAR VOLUME 94.8 FL (78-98); MONOCYTES # (AUTO) 0.3 X10'3 (0-0.9); MONOCYTES % (AUTO) 3.1 % (2-12); NEUTROPHILS # (AUTO) 9.3 X10'3 (1.8-7.7); NEUTROPHILS % (AUTO) 88.4 % (42-75); PLATELET COUNT 378 X10'3 (140-440); RED BLOOD COUNT 4.67 X10'6 (4.20-5.60); RED CELL DISTRIBUTION WIDTH 14.3 % (11.5-14.5); WHITE BLOOD COUNT 10.6 X10'3 (4.5-11.0)
[2023-02-10 01:43] LABS: UA COLLECTION TYPE CLN CATCH MIDSTREAM
[2023-02-10 01:44] LABS: MUCUS STRANDS MODERATE /LPF (Neg); SQUAMOUS EPITHELIAL CELL,UR MANY /LPF (FEW)
[2023-02-10 01:47] LABS: ALANINE AMINOTRANSFERASE 10 U/L (12-78); ALBUMIN 4.1 G/DL (3.4-5.0); ALBUMIN/GLOBULIN RATIO 1.3 (1.1-1.5); ALKALINE PHOSPHATASE 91 IU/L (46-116); ANION GAP 7 (8-16); ASPARTATE AMINO TRANSFERASE 18 U/L (10-37); BILIRUBIN,TOTAL 0.3 MG/DL (0.1-1.0); BLOOD UREA NITROGEN 12 MG/DL (7-18); BUN/CREATININE RATIO 11.9 (10.0-20.0); CALCIUM 10.5 MG/DL (8.5-10.1); CHLORIDE 107 MMOL/L (99-107); CREATININE 1.01 MG/DL (0.40-0.90); GLUCOSE 126 MG/DL (70-104); POTASSIUM 4.2 MMOL/L (3.5-5.1); SODIUM 144 MMOL/L (135-145); TOTAL CARBON DIOXIDE 29.8 MMOL/L (24-32); TOTAL PROTEIN 7.2 G/DL (6.4-8.2); eGFR 62 ML/MIN
[2023-02-10 01:47] LABS: AMORPHOUS URATES 3+; BACTERIA,URINE 2+ /HPF (Neg); WBC,URINE 20-30 /HPF (0-4)
[2023-02-10 01:48] LABS: TRANSITIONAL EPI CELLS,URINE FEW /HPF
[2023-02-10 01:55] LABS: URINE AMPHETAMINE SCREEN POSITIVE (Neg); URINE BARBITUATE SCREEN NEGATIVE (Neg); URINE BENZODIAZEPINES SCREEN NEGATIVE (Neg); URINE CANNABINOID SCREEN POSITIVE (Neg); URINE COCAINE SCREEN NEGATIVE (Neg); URINE METHADONE SCREEN NEGATIVE (Neg); URINE OPIATE SCREEN NEGATIVE (Neg); URINE PHENCYCLIDINE SCREEN NEGATIVE (Neg)
[2023-02-10 01:56] LABS: ETHANOL < 0.010 GM/DL (0.0-0.010)
[2023-02-10 05:49] VITALS: BP 148/86
--- NOTE | 2023-02-10 06:34 | NUR ---
Pt resting in bed comfortable. Snacks at bedside that pt had previously requested. No distress noted at this time.
--- NOTE | 2023-02-10 08:28 | NUR ---
Pt currently resting in bed. No distress noted. [facility] plans to come evaluate her this morning.
--- NOTE | 2023-02-10 09:04 | NUR ---
Pt sitting up on bed eating breakfast tray. No distress noted at this time.
--- NOTE | 2023-02-10 10:06 | NUR ---
Pt resting in bed. No distress noted at this time.
--- NOTE | 2023-02-10 11:13 | NUR ---
Met with patient in regards to substance use and to see if patient was interested in resources for treatment options. Patient is interested in resources for outpatient treatment. I gave patient a list of resources, a list of meetings, a card for [facility] and my card to call me with any questions.
--- NOTE | 2023-02-10 11:22 | NUR ---
Pt in room in bed resting. No distress noted at this time.
== END 2023-02-10 12:51 | disposition home or self-care (01) ==
LOC: ER 23:42
DX: R45.851 Suicidal ideations (principal); Z20.822 Contact with and (suspected) exposure to COVID-19; F31.9 Bipolar disorder, unspecified; J45.909 Unspecified asthma, uncomplicated; F15.10 Other stimulant abuse, uncomplicated; Z88.1 Allergy status to other antibiotic agents; Z88.0 Allergy status to penicillin; Z79.899 Other long term (current) drug therapy
CPT/HCPCS: 36415; 80053; 80305; 80320; 81001; 81025; 84443; 85025; 87811; 96372; 99285; J1200; J1630; J2060

== ENCOUNTER 2023-02-16 15:30 | Emergency (ER) | payer MEDICAID ==
[~2023-02-16] VITALS: Ht 172.7 cm; Wt 68.2 kg
[~2023-02-16 15:30] MED LIST changes: +LITH300T5 PO; +OLAN10TA3 PO; -OLAN5TAB5 PO
[2023-02-16] MEDS ORDERED: LORazepam 2 mg/ml vial IM ONE (15:40)
[2023-02-16] MEDS ORDERED: haloperidol lactate 5mg/ml inj IM ONE (15:40)
--- NOTE | 2023-02-16 16:35 | NUR ---
Patient brought on a gurney by EMS. Patient screaming non-stop. Patient moved over to bed 22 and ILENE Macario gavie patient an injection of haldol and Ativan. Patient had received 50 mg Benadryl I.M. from EMS. Patient is not cooperative at this time. Continue to monitor.
[2023-02-16 16:53] LABS: BASOPHILS # (AUTO) 0.1 X10'3 (0-0.2); BASOPHILS % (AUTO) 0.7 % (0-1); EOSINOPHILS % (AUTO) 0.2 % (0-6); HEMATOCRIT 42.7 % (35.0-45.0); HEMOGLOBIN 14.2 g/dl (12.0-16.0); LYMPHOCYTES # (AUTO) 1.6 X10'3 (1.1-4.8); LYMPHOCYTES % (AUTO) 12.6 % (21-51); MEAN CORPUSCULAR HEMOGLOBIN 31.7 PG (27.0-31.0); MEAN CORPUSCULAR HGB CONC 33.4 g/dL (33.0-36.5); MEAN PLATELET VOLUME 7.6 FL (7.4-10.4); MONOCYTES # (AUTO) 1.1 X10'3 (0-0.9); MONOCYTES % (AUTO) 8.5 % (2-12); NEUTROPHILS # (AUTO) 10.1 X10'3 (1.8-7.7); PLATELET COUNT 363 X10'3 (140-440); RED BLOOD COUNT 4.49 X10'6 (4.20-5.60); RED CELL DISTRIBUTION WIDTH 13.9 % (11.5-14.5)
[2023-02-16 17:02] LABS: ALANINE AMINOTRANSFERASE 26 U/L (12-78); ALBUMIN 3.9 G/DL (3.4-5.0); ALBUMIN/GLOBULIN RATIO 1.3 (1.1-1.5); ALKALINE PHOSPHATASE 99 IU/L (46-116); ANION GAP 8 (8-16); ASPARTATE AMINO TRANSFERASE 37 U/L (10-37); BILIRUBIN,TOTAL 0.5 MG/DL (0.1-1.0); BLOOD UREA NITROGEN 15 MG/DL (7-18); BUN/CREATININE RATIO 17.4 (10.0-20.0); CHLORIDE 107 MMOL/L (99-107); CREATININE 0.86 MG/DL (0.40-0.90); ETHANOL < 0.010 GM/DL (0.0-0.010); GLUCOSE 90 MG/DL (70-104); POTASSIUM 3.5 MMOL/L (3.5-5.1); SODIUM 141 MMOL/L (135-145); TOTAL CARBON DIOXIDE 25.8 MMOL/L (24-32); TOTAL PROTEIN 6.9 G/DL (6.4-8.2); eGFR 75 ML/MIN
--- NOTE | 2023-02-16 17:47 | NUR ---
Patient is now quiet. Awake and laying on her left side. No distress observed. Continue to monitor.
[2023-02-16] MEDS ORDERED: HYDR50TA65 PO (18:14)
[2023-02-16] MEDS ORDERED: OLAN2.5T3 PO (18:14)
[2023-02-16] MEDS ORDERED: BUPR-94 PO (18:14)
[2023-02-16] MEDS ORDERED: BUPR300T53 PO (18:14)
--- NOTE | 2023-02-16 19:00 | NUR ---
Assumed patient care, she is asleep.
--- NOTE | 2023-02-16 20:15 | NUR ---
Patient is sleeping on her right side. In view from nurses station. Good color, W/D.
--- NOTE | 2023-02-16 20:59 | NUR ---
Patient will require a urine sample for labs when she awakens.
--- NOTE | 2023-02-16 22:33 | NUR ---
Patient sleeping quietly on her right side. Good color, no distress.
--- NOTE | 2023-02-17 03:03 | NUR ---
Patient continues to sleep quietly. She has self repositioned in bed.
--- NOTE | 2023-02-17 03:10 | NUR ---
[facility] to [facility] once a UA is complete.
--- NOTE | 2023-02-17 04:12 | NUR ---
Patient sleeping quietly, good color. In view from nurses station.
--- NOTE | 2023-02-17 05:06 | NUR ---
Patient sleeping quietly on her right side.
[2023-02-17 06:29] VITALS: BP 123/78
--- NOTE | 2023-02-17 07:00 | NUR ---
Received Pt in bed sleeping w/o distress at this time. Will continue to monitor.
[2023-02-17 08:36] LABS: CLARITY,URINE TURBID (Clear); COLOR,URINE YELLOW (Yellow); GLUCOSE, URINE NEGATIVE (Neg); KETONES,URINE TRACE mg/dl (Neg); LEUKOCYTE ESTERASE ,URINE NEGATIVE (Neg); NITRITES, URINE NEGATIVE (Neg); OCCULT BLOOD,URINE SMALL (Neg); PROTEIN,URINE TRACE mg/dl (Neg); URINE HCG NEGATIVE (NEG); UROBILINOGEN,URINE 0.2 E.U/dL (0.2-1.0)
[2023-02-17 08:43] LABS: UA COLLECTION TYPE CLN CATCH MIDSTREAM
[2023-02-17 08:50] LABS: MUCUS STRANDS MANY /LPF (Neg); SQUAMOUS EPITHELIAL CELL,UR MANY /LPF (FEW); URINE AMPHETAMINE SCREEN POSITIVE (Neg); URINE BARBITUATE SCREEN NEGATIVE (Neg); URINE BENZODIAZEPINES SCREEN NEGATIVE (Neg); URINE CANNABINOID SCREEN POSITIVE (Neg); URINE COCAINE SCREEN POSITIVE (Neg); URINE METHADONE SCREEN NEGATIVE (Neg); URINE OPIATE SCREEN NEGATIVE (Neg); URINE PHENCYCLIDINE SCREEN NEGATIVE (Neg)
[2023-02-17 08:53] LABS: TRANSITIONAL EPI CELLS,URINE FEW /HPF; WBC,URINE 0-4 /HPF (0-4)
[2023-02-17 08:57] LABS: BACTERIA,URINE 3+ /HPF (Neg)
[2023-02-17 09:04] LABS: AMORPHOUS URATES 2+
[2023-02-17 09:05] LABS: AMMONIUM BIURATE CRYSTALS 2+ /HPF (NEGATIVE)
--- NOTE | 2023-02-17 09:30 | NUR ---
Pt out of bed to use bathroom and ate breakfast. She returned to sleep after eating and responded to questions with nodding.
--- NOTE | 2023-02-17 11:14 | NUR ---
Pt in bed sleeping w/o distress. Will continue to monitor.
--- NOTE | 2023-02-17 13:50 | NUR ---
Received call from [facility] office informing that Pt has been accepted at [facility].
--- NOTE | 2023-02-17 14:30 | NUR ---
Pt changed into own clothes and original 5150 given to [facility] stunt driver. Pt left EROF with security officer supervisor to be taken to [facility] by [facility] stunt driver.
== END 2023-02-17 16:19 ==
LOC: ER 15:31
DX: R44.0 Auditory hallucinations (principal); Z20.822 Contact with and (suspected) exposure to COVID-19; F15.90 Other stimulant use, unspecified, uncomplicated; F31.9 Bipolar disorder, unspecified; J45.909 Unspecified asthma, uncomplicated; Z72.89 Other problems related to lifestyle; Z88.1 Allergy status to other antibiotic agents; Z88.8 Allergy status to other drugs, medicaments and biological substances; Z79.899 Other long term (current) drug therapy
CPT/HCPCS: 36415; 80053; 80305; 80320; 81001; 81025; 84443; 85025; 87811; 96372; 99285; J1630; J2060

== ENCOUNTER 2023-02-23 20:56 | Emergency (ER) | payer MEDICAID ==
[~2023-02-23] VITALS: Ht 170.2 cm; Wt 71.0 kg
[~2023-02-23 20:56] MED LIST changes: +BUPR-94 PO; +BUPR300T53 PO; +HYDR50TA65 PO; -LITH300T5 PO; -OLAN10TA3 PO; +OLAN2.5T3 PO
[2023-02-23 23:23] VITALS: BP 101/69
--- NOTE | 2023-02-24 01:34 | NUR ---
pt was fit for crutches and educated with return demonstration. Dawit wrap to ankle with CMS intact pre and post with education.
[2023-02-26] MEDS ORDERED: CEPH500C82 PO (15:53)
[2023-02-26] MEDS ORDERED: DOXY-135 PO (15:53)
== END 2023-02-24 01:35 | disposition home or self-care (01) ==
LOC: ER 20:56
DX: S93.492A Sprain of other ligament of left ankle, initial encounter (principal); W18.39XA Other fall on same level, initial encounter; Y93.89 Activity, other specified; Y92.89 Other specified places as the place of occurrence of the external cause; Y99.8 Other external cause status
CPT/HCPCS: 73590; 73610; 73630; 99284; A6449

== ENCOUNTER 2023-02-28 01:07 | Emergency (ER) | payer MEDICAID ==
[~2023-02-28] VITALS: Ht 322.6 cm; Wt 73.4 kg
[~2023-02-28 01:07] MED LIST changes: +CEPH500C82 PO; +DOXY-135 PO
[2023-02-28 03:35] LABS: BASOPHILS # (AUTO) 0.1 X10'3 (0-0.2); BASOPHILS % (AUTO) 0.7 % (0-1); EOSINOPHILS # (AUTO) 0.1 X10'3 (0-0.9); EOSINOPHILS % (AUTO) 1.1 % (0-6); HEMATOCRIT 39.9 % (35.0-45.0); HEMOGLOBIN 13.5 g/dl (12.0-16.0); LYMPHOCYTES # (AUTO) 1.8 X10'3 (1.1-4.8); LYMPHOCYTES % (AUTO) 18.2 % (21-51); MEAN CORPUSCULAR HGB CONC 33.8 g/dL (33.0-36.5); MEAN CORPUSCULAR VOLUME 94.6 FL (78-98); MEAN PLATELET VOLUME 7.2 FL (7.4-10.4); MONOCYTES # (AUTO) 0.7 X10'3 (0-0.9); MONOCYTES % (AUTO) 7.3 % (2-12); NEUTROPHILS % (AUTO) 72.7 % (42-75); PLATELET COUNT 341 X10'3 (140-440); RED BLOOD COUNT 4.22 X10'6 (4.20-5.60); RED CELL DISTRIBUTION WIDTH 14.1 % (11.5-14.5); WHITE BLOOD COUNT 9.6 X10'3 (4.5-11.0)
[2023-02-28 03:48] LABS: ALANINE AMINOTRANSFERASE 37 U/L (12-78); ALBUMIN 3.5 G/DL (3.4-5.0); ALBUMIN/GLOBULIN RATIO 1.2 (1.1-1.5); ALKALINE PHOSPHATASE 93 IU/L (46-116); ANION GAP 9 (8-16); ASPARTATE AMINO TRANSFERASE 36 U/L (10-37); BILIRUBIN,TOTAL 0.4 MG/DL (0.1-1.0); BLOOD UREA NITROGEN 8 MG/DL (7-18); BUN/CREATININE RATIO 11.9 (10.0-20.0); CALCIUM 8.7 MG/DL (8.5-10.1); CHLORIDE 108 MMOL/L (99-107); CREATININE 0.67 MG/DL (0.40-0.90); ETHANOL < 0.010 GM/DL (0.0-0.010); GLUCOSE 104 MG/DL (70-104); POTASSIUM 3.2 MMOL/L (3.5-5.1); SODIUM 144 MMOL/L (135-145); TOTAL CARBON DIOXIDE 27.4 MMOL/L (24-32); TOTAL PROTEIN 6.5 G/DL (6.4-8.2); eGFR > 90 ML/MIN
--- NOTE | 2023-02-28 05:00 | NUR ---
Pt ambulated onto unit from [facility] ER into bed 22. Pt cooperative but sleepy. Answered questions and went to sleep. Declined to give urine specimen at this time unable to pee. Pt explanation of why she came to ER is garbled and filled with grievances against the [facility] and [facility]. It seems she was at the [facility] after discharge from [facility]. There was an incident at the [facility] resulting in her being asked to leave. Per pt they would not return her medications. She spent an unspecified amount of days sleeping at different places and without any meds. She then went to [facility] per pt "they knocked me out because I was so psychotic" But then discharged her and in the pts opinion refused to get her psychiatric help that she needed. It is not clear but they may have provided her with a cab.
--- NOTE | 2023-02-28 06:30 | NUR ---
Received pt. sleeping in bed, rr are even and unlabored.
[2023-02-28 07:04] LABS: URINE HCG NEGATIVE (NEG)
[2023-02-28] MEDS ORDERED: potassium Cl 20 mEq SR tablet PO STA (07:05)
--- NOTE | 2023-02-28 07:07 | NUR ---
Pt. has a postassium level of 3.2, this was endorsed to Dr. Prado and 40MEQ of potassium chloride replacement was ordered.
[2023-02-28 07:08] LABS: URINE AMPHETAMINE SCREEN POSITIVE (Neg); URINE BARBITUATE SCREEN NEGATIVE (Neg); URINE BENZODIAZEPINES SCREEN POSITIVE (Neg); URINE CANNABINOID SCREEN POSITIVE (Neg); URINE COCAINE SCREEN NEGATIVE (Neg); URINE METHADONE SCREEN NEGATIVE (Neg); URINE OPIATE SCREEN NEGATIVE (Neg); URINE PHENCYCLIDINE SCREEN NEGATIVE (Neg)
--- NOTE | 2023-02-28 08:22 | NUR ---
Pt's urine was collected and sent to lab, urine was very dark in color, results are pending.
--- NOTE | 2023-02-28 08:30 | NUR ---
Pt. awoke to eat breakfast and 1:1 was completed at bedside. She was cooperative with a mental health assessment, however presents with inappropriate laughter at intervals and responds aloud to internal stimuli. Pt. denies any current S/I, but endorses a past suicidal history of drinking ammonia. She admits to A/ROMERO and states, "They never stop, I could write ten books about it." Pt. makes paranoid delusional statements that others want to hurt her and her thought process is disorganized.
[2023-02-28 08:34] LABS: GLUCOSE, URINE NEGATIVE (Neg); KETONES,URINE TRACE mg/dl (Neg); LEUKOCYTE ESTERASE ,URINE NEGATIVE (Neg); NITRITES, URINE NEGATIVE (Neg); OCCULT BLOOD,URINE LARGE (Neg); PROTEIN,URINE 30 mg/dl (Neg)
[2023-02-28] MEDS ORDERED: nicotine 21mg patch - 24 hr TD SCH (08:35)
[2023-02-28 08:59] LABS: UA COLLECTION TYPE CLN CATCH MIDSTREAM
[2023-02-28 09:00] LABS: CLARITY,URINE CLOUDY (Clear); COLOR,URINE BROWN (Yellow)
[2023-02-28 09:01] LABS: RBC,URINE TNTC /HPF (0-2); WBC,URINE 0-4 /HPF (0-4)
[2023-02-28 09:02] LABS: BACTERIA,URINE 1+ /HPF (Neg); MUCUS STRANDS MANY /LPF (Neg); SQUAMOUS EPITHELIAL CELL,UR MODERATE /LPF (FEW)
--- NOTE | 2023-02-28 10:18 | NUR ---
[facility] at bedside interviewing pt. at this time, he will place her on a hold.
--- NOTE | 2023-02-28 10:33 | NUR ---
Pt. is sleeping, no s/s of distress noted.
--- NOTE | 2023-02-28 11:19 | NUR ---
Per medication reconciliation, pt. was taking [place]. Pt. is disorganized and does not know the last time she took her medications. This was endorsed to Dr. Prado and a [place] level was ordered. Addendum: 02/28/23 at 1140 by RAIZA Per lab, pt's lithium level will be sent out to [facility] and should be back in approximately 3 hours.
[2023-02-28] MEDS ORDERED: LITH300T3 PO (11:33)
[2023-02-28] MEDS ORDERED: OLAN10TA3 PO (11:33)
--- NOTE | 2023-02-28 12:09 | NUR ---
Pt. up to use the bathroom at this time, able to ambulate without difficulty.
--- NOTE | 2023-02-28 12:16 | NUR ---
Spoke to [facility] regarding possible placement for pt.
--- NOTE | 2023-02-28 12:33 | NUR ---
Pt. was accepted at [facility], pick-up time is pending.
--- NOTE | 2023-02-28 13:32 | NUR ---
Met with patient in regards to substance use and to see if patient was interested in resources for treatment options. Patient is interested. Patient is on a waiting list for [facility]. I talked to patient about medication to help with cravings. I gave patient a card for [facility] and my card to call me with any questions.
--- NOTE | 2023-02-28 14:00 | NUR ---
Pt. was discharged from the unit accompanied by staff and security to the vehicle which will be transporting her to [facility] [place]. Pt's belongings were inventoried and returned to her by Tech. Pt. is able to contract for safety.
[2023-02-28 15:14] VITALS: BP 113/73
== END 2023-02-28 15:20 ==
LOC: ER 01:08
DX: R45.851 Suicidal ideations (principal); Z20.822 Contact with and (suspected) exposure to COVID-19; F29 Unspecified psychosis not due to a substance or known physiological condition; Z88.1 Allergy status to other antibiotic agents
CPT/HCPCS: 36415; 80053; 80305; 80320; 81001; 81025; 85025; 87811; 99285

== ENCOUNTER 2023-05-02 20:41 | Emergency (ER) | payer MEDICAID ==
[~2023-05-02] VITALS: Ht 170.2 cm; Wt 72.7 kg
[~2023-05-02 20:41] MED LIST changes: -BUPR-94 PO; -BUPR300T53 PO; -CEPH500C82 PO; -DOXY-135 PO; -HYDR50TA65 PO; +LITH300T3 PO; +OLAN10TA3 PO; -OLAN2.5T3 PO
[2023-05-02 21:40] LABS: BASOPHILS # (AUTO) 0.1 X10'3 (0-0.2); EOSINOPHILS # (AUTO) 0.1 X10'3 (0-0.9); EOSINOPHILS % (AUTO) 1.5 % (0-6); HEMATOCRIT 44.5 % (35.0-45.0); HEMOGLOBIN 14.9 g/dl (12.0-16.0); LYMPHOCYTES # (AUTO) 3.4 X10'3 (1.1-4.8); LYMPHOCYTES % (AUTO) 34.5 % (21-51); MEAN CORPUSCULAR HEMOGLOBIN 31.9 PG (27.0-31.0); MEAN CORPUSCULAR HGB CONC 33.5 g/dL (33.0-36.5); MEAN CORPUSCULAR VOLUME 95.1 FL (78-98); MEAN PLATELET VOLUME 7.5 FL (7.4-10.4); MONOCYTES # (AUTO) 0.5 X10'3 (0-0.9); MONOCYTES % (AUTO) 5.4 % (2-12); NEUTROPHILS # (AUTO) 5.7 X10'3 (1.8-7.7); NEUTROPHILS % (AUTO) 57.6 % (42-75); PLATELET COUNT 338 X10'3 (140-440); RED BLOOD COUNT 4.67 X10'6 (4.20-5.60); RED CELL DISTRIBUTION WIDTH 13.8 % (11.5-14.5); WHITE BLOOD COUNT 9.8 X10'3 (4.5-11.0)
[2023-05-02 21:42] LABS: BILIRUBIN,URINE NEGATIVE (Neg); CLARITY,URINE SLIGHTLY CLOUDY (Clear); COLOR,URINE YELLOW (Yellow); GLUCOSE, URINE NEGATIVE (Neg); KETONES,URINE TRACE mg/dl (Neg); LEUKOCYTE ESTERASE ,URINE NEGATIVE (Neg); NITRITES, URINE NEGATIVE (Neg); OCCULT BLOOD,URINE SMALL (Neg); PROTEIN,URINE NEGATIVE (Neg); UROBILINOGEN,URINE 0.2 E.U/dL (0.2-1.0)
[2023-05-02 21:49] LABS: UA COLLECTION TYPE CLN CATCH MIDSTREAM
[2023-05-02 21:50] LABS: URINE AMPHETAMINE SCREEN NEGATIVE (Neg); URINE BARBITUATE SCREEN NEGATIVE (Neg); URINE BENZODIAZEPINES SCREEN NEGATIVE (Neg); URINE CANNABINOID SCREEN NEGATIVE (Neg); URINE COCAINE SCREEN NEGATIVE (Neg); URINE METHADONE SCREEN NEGATIVE (Neg); URINE OPIATE SCREEN NEGATIVE (Neg); URINE PHENCYCLIDINE SCREEN NEGATIVE (Neg)
[2023-05-02 21:51] LABS: SQUAMOUS EPITHELIAL CELL,UR MANY /LPF (FEW)
[2023-05-02 21:52] LABS: BACTERIA,URINE 3+ /HPF (Neg)
[2023-05-02 21:56] LABS: ALANINE AMINOTRANSFERASE 16 U/L (12-78); ALBUMIN 3.7 G/DL (3.4-5.0); ALBUMIN/GLOBULIN RATIO 1.2 (1.1-1.5); ALKALINE PHOSPHATASE 80 IU/L (46-116); ANION GAP 3 (8-16); ASPARTATE AMINO TRANSFERASE 14 U/L (10-37); BILIRUBIN,TOTAL 0.3 MG/DL (0.1-1.0); BLOOD UREA NITROGEN 12 MG/DL (7-18); BUN/CREATININE RATIO 12.9 (10.0-20.0); CALCIUM 9.1 MG/DL (8.5-10.1); CHLORIDE 105 MMOL/L (99-107); CREATININE 0.93 MG/DL (0.40-0.90); GLUCOSE 99 MG/DL (70-104); POTASSIUM 3.6 MMOL/L (3.5-5.1); SODIUM 139 MMOL/L (135-145); TOTAL CARBON DIOXIDE 30.9 MMOL/L (24-32); TOTAL PROTEIN 6.9 G/DL (6.4-8.2); eCRCL 81 ML/MIN; eGFR 68 ML/MIN
[2023-05-02 21:57] LABS: URINE HCG NEGATIVE (NEG)
[2023-05-02 22:04] LABS: CAL OXALATE CRYSTALS FEW /HPF (NEGATIVE)
[2023-05-02 22:06] LABS: THYROID STIMULATING HORMONE 5.79 ulU/ml (0.34-4.50)
[2023-05-02 22:18] LABS: ETHANOL < 10 MG/DL (<10)
--- NOTE | 2023-05-03 03:33 | NUR ---
PACKET SENT TO [facility]
[2023-05-03 05:58] VITALS: BP 96/63; PULSE 78; TEMP 97.7; O2SAT 100
--- NOTE | 2023-05-03 06:39 | NUR ---
Patient sleeping on left side. Respirations equal and nonlabored. Continue with plan of care.
[2023-05-03 07:45] VITALS: RESP 16
[2023-05-03] MEDS ORDERED: OLAN5TAB29 PO (08:13)
[2023-05-03] MEDS ORDERED: BUPR300T53 PO (08:13)
[2023-05-03] MEDS ORDERED: HYDR50CA5 PO (08:13)
--- NOTE | 2023-05-03 08:17 | NUR ---
Patient eating breakfast. No distress observed. Continue to monitor.
[2023-05-03] MEDS ORDERED: nicotine 21mg patch - 24 hr TD SCH (08:45)
[2023-05-03] MEDS ORDERED: hydrOXYzine 25 MG tablet PO PRN (09:50)
--- NOTE | 2023-05-03 10:07 | NUR ---
RN spoke to patient. Patient states she is not suicidal but wants her meds adjusted. Patient states she is doing much better today and got frightened because of a new patient admitted to her recovery unit. Patient states her doctor recently changed her medication dosages and she felt better before the change. Patient states she wants to go back to her recovery unit and she can call her doctor about her medication. Patient pending eval from [facility]. No distress observed. Continue with patient care plan.
--- NOTE | 2023-05-03 11:17 | NUR ---
Angela [facility], evaluating patient. No distress observed. Continue to monitor.
--- NOTE | 2023-05-03 12:11 | NUR ---
Patient eating lunch. No distress observed. Continue to monitor.
[2023-05-03] MEDS ORDERED: OLANZapine 5mg rapidly disint. tablet PO SCH (21:00)
[2023-05-04] MEDS ORDERED: buPROPion SR 150mg tablet PO SCH (08:00)
== END 2023-05-03 13:09 | disposition home or self-care (01) ==
LOC: ER 20:42
DX: R45.851 Suicidal ideations (principal); Z20.822 Contact with and (suspected) exposure to COVID-19; F31.9 Bipolar disorder, unspecified; F20.9 Schizophrenia, unspecified; F17.200 Nicotine dependence, unspecified, uncomplicated; F15.10 Other stimulant abuse, uncomplicated; Z88.1 Allergy status to other antibiotic agents; Z79.899 Other long term (current) drug therapy
CPT/HCPCS: 36415; 80053; 80305; 80320; 81001; 81025; 84439; 84443; 85025; 87811; 99285

== ENCOUNTER 2023-06-29 21:25 | Emergency (ER) | payer MEDICAID ==
[~2023-06-29] VITALS: Ht 167.6 cm; Wt 63.6 kg
[~2023-06-29 21:25] MED LIST changes: +BUPR300T53 PO; +HYDR50CA5 PO; -OLAN10TA3 PO; +OLAN5TAB29 PO
[2023-06-29 21:29] VITALS: BP 135/93; PULSE 73; RESP 16; TEMP 100.2; O2SAT 99
--- NOTE | 2023-06-29 21:29 | NUR ---
PT REFUSED TO MOVE OR LEAVE TRIAGE ROOM AFTER TRIAGE COMPLETED. NO AVAILABLE BEDS TO PLACE PT IN. SECURITY CALLED. PT REFUSED TO FOLLOW COMMANDS FROM SECURITY. [facility] CALLED. PT REFUSED TO FOLLOW COMMANDS FROM PD. EVENTUALLY PT TAKEN TO T2 BY PD
--- NOTE | 2023-06-29 22:19 | NUR ---
PER REGISTRATION, PT WAS TAKEN INTO CUSTODY BY JAC
== END 2023-06-29 22:21 ==
LOC: ER 21:26
DX: F41.9 Anxiety disorder, unspecified (principal); Z53.21 Procedure and treatment not carried out due to patient leaving prior to being seen by health care provider
CPT/HCPCS: 99281; 99283

== ENCOUNTER 2023-07-10 13:12 | Emergency (ER) | payer MEDICAID ==
[~2023-07-10] VITALS: Ht 162.6 cm; Wt 67.9 kg
--- NOTE | 2023-07-10 13:41 | NUR ---
pt sitting in lobby with her roommate. Pt reports using meth today. Notified dr. contreras.
--- NOTE | 2023-07-10 14:22 | NUR ---
pt has been off antipsychotic medication for 1 month. took her off the meds. delusions, hearing voices. dizzy.
[2023-07-10] MEDS ORDERED: LORazepam 1 MG tablet PO ONE (15:00)
[2023-07-10 15:26] LABS: BILIRUBIN,URINE NEGATIVE (Neg); CLARITY,URINE SLIGHTLY CLOUDY (Clear); COLOR,URINE YELLOW (Yellow); GLUCOSE, URINE 100 mg/dl (Neg); KETONES,URINE TRACE mg/dl (Neg); LEUKOCYTE ESTERASE ,URINE SMALL (Neg); NITRITES, URINE NEGATIVE (Neg); OCCULT BLOOD,URINE NEGATIVE (Neg); PH,URINE 7.5 (4.8-8.0); PROTEIN,URINE NEGATIVE (Neg); UROBILINOGEN,URINE 0.2 E.U/dL (0.2-1.0)
[2023-07-10 15:27] LABS: URINE HCG NEGATIVE (NEG)
[2023-07-10 15:33] LABS: URINE AMPHETAMINE SCREEN POSITIVE (Neg); URINE BARBITUATE SCREEN NEGATIVE (Neg); URINE BENZODIAZEPINES SCREEN NEGATIVE (Neg); URINE CANNABINOID SCREEN POSITIVE (Neg); URINE COCAINE SCREEN NEGATIVE (Neg); URINE METHADONE SCREEN NEGATIVE (Neg); URINE OPIATE SCREEN NEGATIVE (Neg); URINE PHENCYCLIDINE SCREEN NEGATIVE (Neg)
--- NOTE | 2023-07-10 16:00 | NUR ---
pt given PO ativan for anxiety. pt says she is "feeling better"
[2023-07-10 16:07] LABS: UA COLLECTION TYPE NON-SPECIFIED
[2023-07-10 16:25] LABS: BACTERIA,URINE 1+ /HPF (Neg); MUCUS STRANDS NONE SEEN /LPF (Neg); RBC,URINE NONE SEEN /HPF (0-2); SQUAMOUS EPITHELIAL CELL,UR MANY /LPF (FEW); YEAST FEW /HPF (NEGATIVE)
[2023-07-10 16:44] LABS: BASOPHILS % (AUTO) 0.5 % (0-1); EOSINOPHILS % (AUTO) 0.1 % (0-6); HEMATOCRIT 44.1 % (35.0-45.0); HEMOGLOBIN 15.2 g/dl (12.0-16.0); LYMPHOCYTES # (AUTO) 1.6 X10'3 (1.1-4.8); LYMPHOCYTES % (AUTO) 18.2 % (21-51); MEAN CORPUSCULAR HEMOGLOBIN 32.3 PG (27.0-31.0); MEAN CORPUSCULAR HGB CONC 34.5 g/dL (33.0-36.5); MEAN CORPUSCULAR VOLUME 93.7 FL (78-98); MEAN PLATELET VOLUME 7.5 FL (7.4-10.4); MONOCYTES # (AUTO) 0.3 X10'3 (0-0.9); NEUTROPHILS # (AUTO) 6.7 X10'3 (1.8-7.7); NEUTROPHILS % (AUTO) 77.2 % (42-75); PLATELET COUNT 305 X10'3 (140-440); RED BLOOD COUNT 4.71 X10'6 (4.20-5.60); RED CELL DISTRIBUTION WIDTH 13.6 % (11.5-14.5); WHITE BLOOD COUNT 8.7 X10'3 (4.5-11.0)
[2023-07-10 16:49] LABS: ALANINE AMINOTRANSFERASE 28 U/L (12-78); ALBUMIN 3.9 G/DL (3.4-5.0); ALBUMIN/GLOBULIN RATIO 1.2 (1.1-1.5); ALKALINE PHOSPHATASE 81 IU/L (46-116); ANION GAP 9 (8-16); ASPARTATE AMINO TRANSFERASE 18 U/L (10-37); BILIRUBIN,TOTAL 0.3 MG/DL (0.1-1.0); BLOOD UREA NITROGEN 11 MG/DL (7-18); BUN/CREATININE RATIO 13.8 (10.0-20.0); CALCIUM 9.6 MG/DL (8.5-10.1); CHLORIDE 106 MMOL/L (99-107); GLUCOSE 102 MG/DL (70-104); POTASSIUM 3.7 MMOL/L (3.5-5.1); SODIUM 140 MMOL/L (135-145); TOTAL CARBON DIOXIDE 25.1 MMOL/L (24-32); TOTAL PROTEIN 7.2 G/DL (6.4-8.2); eCRCL 84 ML/MIN; eGFR 81 ML/MIN
[2023-07-10 16:58] LABS: THYROID STIMULATING HORMONE 0.95 ulU/ml (0.34-4.50)
[2023-07-10 17:14] LABS: ETHANOL < 10 MG/DL (<10)
[2023-07-10] MEDS ORDERED: SULF1TAB49 PO (17:25)
[2023-07-10] MEDS ORDERED: FOSFOMYCIN TROMETHAMINE 3 GM PACKET PO ONE (17:25)
[2023-07-10 17:44] VITALS: BP 112/76; PULSE 96; RESP 18; TEMP 98.5; O2SAT 98
== END 2023-07-10 17:53 | disposition home or self-care (01) ==
LOC: ER 13:13
DX: N39.0 Urinary tract infection, site not specified (principal); J45.909 Unspecified asthma, uncomplicated; F31.9 Bipolar disorder, unspecified; F15.90 Other stimulant use, unspecified, uncomplicated; Z88.1 Allergy status to other antibiotic agents; Z79.899 Other long term (current) drug therapy
CPT/HCPCS: 36415; 80053; 80305; 80320; 81001; 81025; 84443; 85025; 99283; 99285

== ENCOUNTER 2023-08-12 18:39 | Inpatient (IN) | payer MEDICAID ==
[~2023-08-12] VITALS: Ht 170.2 cm; Wt 70.5 kg
[~2023-08-12 18:39] MED LIST changes: +NICO-687 TD; +OLAN2.5T28 PO; -OLAN5TAB29 PO; +PROP20TA6 PO; +TRAZ-251 PO
[2023-08-12] MEDS ORDERED: OLANZapine 2.5MG tablet PO STA (19:21)
[2023-08-12 19:23] LABS: BASOPHILS # (AUTO) 0.1 X10'3 (0-0.2); BASOPHILS % (AUTO) 0.6 % (0-1); EOSINOPHILS % (AUTO) 0.4 % (0-6); HEMATOCRIT 42.6 % (35.0-45.0); HEMOGLOBIN 14.3 g/dl (12.0-16.0); LYMPHOCYTES # (AUTO) 2.7 X10'3 (1.1-4.8); LYMPHOCYTES % (AUTO) 24.8 % (21-51); MEAN CORPUSCULAR HGB CONC 33.6 g/dL (33.0-36.5); MEAN PLATELET VOLUME 7.9 FL (7.4-10.4); MONOCYTES # (AUTO) 0.6 X10'3 (0-0.9); MONOCYTES % (AUTO) 6.1 % (2-12); NEUTROPHILS # (AUTO) 7.3 X10'3 (1.8-7.7); NEUTROPHILS % (AUTO) 68.1 % (42-75); PLATELET COUNT 330 X10'3 (140-440); RED BLOOD COUNT 4.48 X10'6 (4.20-5.60); RED CELL DISTRIBUTION WIDTH 14.3 % (11.5-14.5); WHITE BLOOD COUNT 10.7 X10'3 (4.5-11.0)
[2023-08-12] MEDS ORDERED: LORazepam 1 MG tablet PO ONE ×2 (19:25)
[2023-08-12] MEDS ORDERED: OLANZapine 5mg rapidly disint. tablet PO ONE (19:25)
[2023-08-12 19:29] LABS: URINE HCG NEGATIVE (NEG)
[2023-08-12 19:35] LABS: ETHANOL < 10 MG/DL (<10); LIPASE 22 U/L (16-77); MAGNESIUM 1.7 MG/DL (1.5-2.4); PRO BRAIN NATRIURETIC PEPTIDE 61 PG/ML (0-125)
[2023-08-12 19:35] LABS: BILIRUBIN,URINE NEGATIVE (Neg); CLARITY,URINE CLOUDY (Clear); COLOR,URINE YELLOW (Yellow); GLUCOSE, URINE NEGATIVE (Neg); KETONES,URINE NEGATIVE (Neg); LEUKOCYTE ESTERASE ,URINE NEGATIVE (Neg); NITRITES, URINE NEGATIVE (Neg); OCCULT BLOOD,URINE MODERATE (Neg); PROTEIN,URINE 100 mg/dl (Neg); UROBILINOGEN,URINE 0.2 E.U/dL (0.2-1.0)
[2023-08-12 19:37] LABS: UA COLLECTION TYPE CLN CATCH MIDSTREAM
[2023-08-12] MEDS ORDERED: haloperidol lactate 5mg/ml inj IM ONE ×2 (19:40→19:50)
[2023-08-12] MEDS ORDERED: LORazepam 2 mg/ml vial IM ONE (19:40)
[2023-08-12] MEDS ORDERED: diphenhydrAMINE 50 mg/ml inj IM ONE (19:40)
[2023-08-12] MEDS ORDERED: haloperidol lactate 5mg/ml inj ONE ×2 (19:41→19:51)
[2023-08-12] MEDS ORDERED: LORazepam 2 mg/ml vial ONE (19:42)
[2023-08-12 19:43] LABS: URINE AMPHETAMINE SCREEN POSITIVE (Neg); URINE BARBITUATE SCREEN NEGATIVE (Neg); URINE BENZODIAZEPINES SCREEN NEGATIVE (Neg); URINE CANNABINOID SCREEN POSITIVE (Neg); URINE COCAINE SCREEN NEGATIVE (Neg); URINE METHADONE SCREEN NEGATIVE (Neg); URINE OPIATE SCREEN NEGATIVE (Neg); URINE PHENCYCLIDINE SCREEN NEGATIVE (Neg)
[2023-08-12 19:48] LABS: BACTERIA,URINE 3+ /HPF (Neg); MUCUS STRANDS MANY /LPF (Neg); RBC,URINE 0-2 /HPF (0-2); SQUAMOUS EPITHELIAL CELL,UR MANY /LPF (FEW); WBC,URINE 0-4 /HPF (0-4)
[2023-08-12 23:42] LABS: ALANINE AMINOTRANSFERASE 24 U/L (12-78); ALBUMIN 3.5 G/DL (3.4-5.0); ALBUMIN/GLOBULIN RATIO 0.9 (1.1-1.5); ALKALINE PHOSPHATASE 82 IU/L (46-116); ANION GAP 10 (8-16); ASPARTATE AMINO TRANSFERASE 19 U/L (10-37); BILIRUBIN,TOTAL 0.4 MG/DL (0.1-1.0); BLOOD UREA NITROGEN 9 MG/DL (7-18); BUN/CREATININE RATIO 12.2 (10.0-20.0); CALCIUM 8.9 MG/DL (8.5-10.1); CHLORIDE 102 MMOL/L (99-107); CREATININE 0.74 MG/DL (0.40-0.90); GLUCOSE 122 MG/DL (70-104); POTASSIUM 3.5 MMOL/L (3.5-5.1); SODIUM 137 MMOL/L (135-145); TOTAL CARBON DIOXIDE 24.7 MMOL/L (24-32); TOTAL PROTEIN 7.2 G/DL (6.4-8.2); eCRCL 87 ML/MIN; eGFR 89 ML/MIN
[2023-08-13] MEDS ORDERED: NICO-687 TOP (01:49)
[2023-08-13] MEDS ORDERED: TRAZ-251 PO (01:49)
[2023-08-13] MEDS ORDERED: OLAN2.5T3 PO (01:49)
[2023-08-13] MEDS ORDERED: HYDR50CA5 PO (01:49)
[2023-08-13] MEDS ORDERED: PROP10TA10 PO (01:49)
[2023-08-13] MEDS ORDERED: NICO-630 TD (02:20)
[2023-08-13] MEDS: lithium carbonate 150mg capsule PO SCH (08:00)
[2023-08-13] MEDS: buPROPion SR 150mg tablet PO SCH ×2 (08:30→20:00)
[2023-08-13] MEDS: nicotine 7mg patch - 24hr TD SCH (08:31)
[2023-08-13] MEDS: OLANZapine 2.5MG tablet PO SCH (20:00)
[2023-08-13] MEDS ORDERED: mag hydrox/Alum hydrox/simeth 30ml oral suspension PO PRN (20:55)
[2023-08-13] MEDS ORDERED: acetaminophen 325mg tablet PO PRN (20:55)
[2023-08-13] MEDS ORDERED: magnesium hydroxide 30ml (MOM) UD suspension PO PRN (20:55)
[2023-08-13 21:06] VITALS: BP 93/54; PULSE 64; RESP 14; TEMP 98.6; O2SAT 97
[2023-08-13] MEDS: traZODone 50mg tablet PO PRN (21:36)
[2023-08-14 07:00] VITALS: RESP 12; O2SAT 98
[2023-08-14] MEDS: lithium carbonate 150mg capsule PO SCH (07:56)
[2023-08-14] MEDS: buPROPion SR 150mg tablet PO SCH ×2 (07:56→20:18)
[2023-08-14] MEDS: nicotine 7mg patch - 24hr TD SCH (07:56)
[2023-08-14 08:00] VITALS: BP 115/73; PULSE 90; RESP 12; TEMP 97.6; O2SAT 98
[2023-08-14] MEDS: NICOTINE POLACRILEX 2 MG LOZENGE BC PRN ×4 (09:40→16:11)
[2023-08-14] MEDS: hydrOXYzine 25 MG tablet PO PRN ×2 (11:26→16:56)
[2023-08-14] MEDS: propranolol 10mg tablet PO PRN (12:52)
[2023-08-14] MEDS: naltrexone 50mg tablet PO SCH (16:56)
[2023-08-14 19:18] VITALS: RESP 16; O2SAT 91
[2023-08-14 20:00] VITALS: BP 95/60; PULSE 68; RESP 14; TEMP 98.5; O2SAT 98
[2023-08-14] MEDS: OLANZapine 2.5MG tablet PO SCH (20:18)
[2023-08-15] MEDS: NICOTINE POLACRILEX 2 MG LOZENGE BC PRN ×4 (06:46→15:40)
[2023-08-15 07:00] VITALS: RESP 16; O2SAT 97
[2023-08-15] MEDS: buPROPion SR 150mg tablet PO SCH ×2 (07:29→20:49)
[2023-08-15] MEDS: nicotine 7mg patch - 24hr TD SCH (07:29)
[2023-08-15 08:00] VITALS: BP 120/76; PULSE 75; RESP 16; TEMP 98.3; O2SAT 97
[2023-08-15] MEDS: hydrOXYzine 25 MG tablet PO PRN ×2 (08:25→15:55)
[2023-08-15] MEDS: naltrexone 50mg tablet PO SCH (09:14)
[2023-08-15] MEDS: propranolol 10mg tablet PO PRN (13:33)
[2023-08-15] MEDS: acetaminophen 325mg tablet PO PRN (14:34)
[2023-08-15 19:00] VITALS: BP 95/54; PULSE 68; RESP 14; TEMP 98.4; O2SAT 97
[2023-08-15] MEDS: OLANZapine 2.5MG tablet PO SCH (20:49)
[2023-08-15] MEDS: traZODone 50mg tablet PO PRN (20:49)
[2023-08-16] MEDS: NICOTINE POLACRILEX 2 MG LOZENGE BC PRN ×3 (06:58→12:26)
[2023-08-16 07:00] VITALS: RESP 16; O2SAT 98
[2023-08-16] MEDS: buPROPion SR 150mg tablet PO SCH (07:12)
[2023-08-16] MEDS: naltrexone 50mg tablet PO SCH (07:12)
[2023-08-16] MEDS: nicotine 7mg patch - 24hr TD SCH (07:14)
[2023-08-16 08:00] VITALS: BP 107/70; PULSE 87; RESP 16; TEMP 97.1; O2SAT 98
[2023-08-16] MEDS: propranolol 10mg tablet PO PRN (08:46)
[2023-08-16] MEDS: acetaminophen 325mg tablet PO PRN (08:46)
[2023-08-16] MEDS ORDERED: NICO-630 TD (13:18)
[2023-08-16] MEDS ORDERED: OLAN2.5T28 PO (13:18)
[2023-08-16] MEDS ORDERED: BUPR-72 PO (13:18)
[2023-08-16] MEDS ORDERED: PROP20TA6 PO (13:18)
[2023-08-16] MEDS ORDERED: TRAZ-251 PO (13:18)
[2023-08-16] MEDS ORDERED: NALT50TA PO (13:18)
[2023-08-18 13:39] VITALS: BP 148/101; PULSE 140; RESP 18; TEMP 98.2; O2SAT 95
== END 2023-08-16 14:10 | disposition home or self-care (01) | DRG 751 ==
LOC: ER 18:39 → UNDOADMIN 08-13 17:35 → ADULT MH 08-13 17:35 → UNDOADMIN 08-13 21:54
PROVIDERS: ADMIT Psychiatry & Neurology Psychiatry; ATTEND Psychiatry & Neurology Psychiatry
PROC: GZHZZZZ Group Psychotherapy (ICD-10-PCS; principal; 2023-08-14)
DX: F29 Unspecified psychosis not due to a substance or known physiological condition (principal); F25.9 Schizoaffective disorder, unspecified; R45.851 Suicidal ideations; F15.159 Other stimulant abuse with stimulant-induced psychotic disorder, unspecified; F31.9 Bipolar disorder, unspecified; F17.210 Nicotine dependence, cigarettes, uncomplicated; F10.10 Alcohol abuse, uncomplicated; F43.10 Post-traumatic stress disorder, unspecified; J45.909 Unspecified asthma, uncomplicated; Z82.49 Family history of ischemic heart disease and other diseases of the circulatory system; Z20.822 Contact with and (suspected) exposure to COVID-19; Z81.8 Family history of other mental and behavioral disorders; Z88.1 Allergy status to other antibiotic agents; Z79.899 Other long term (current) drug therapy; Z85.41 Personal history of malignant neoplasm of cervix uteri
CPT/HCPCS: 36415; 71045; 80053; 80305; 80320; 81001; 81025; 83690; 83735; 83880; 84443; 84484; 85025; 87081; 87811; 99285; C2617; J1200; J1630; J2060; Q0177

== ENCOUNTER 2023-08-28 22:45 | Emergency (ER) | payer MEDICAID ==
[~2023-08-28] VITALS: Ht 170.2 cm; Wt 69.5 kg
[~2023-08-28 22:45] MED LIST changes: +BUPR-72 PO; -BUPR300T53 PO; -HYDR50CA5 PO; -LITH300T3 PO; +NALT50TA PO; +NICO-630 TD; -NICO-687 TD
[2023-08-28 23:05] VITALS: BP 131/92; PULSE 123; TEMP 98.7; O2SAT 99
[2023-08-28] MEDS ORDERED: olanzapine 10mg tablet PO SCH (23:05)
[2023-08-29 01:08] VITALS: RESP 16
== END 2023-08-29 01:14 | disposition home or self-care (01) ==
LOC: ER 22:46
DX: F20.9 Schizophrenia, unspecified (principal); F15.10 Other stimulant abuse, uncomplicated; F31.9 Bipolar disorder, unspecified; J45.909 Unspecified asthma, uncomplicated; Z88.1 Allergy status to other antibiotic agents; Z88.8 Allergy status to other drugs, medicaments and biological substances; Z79.899 Other long term (current) drug therapy
CPT/HCPCS: 71045; 93005; 99283

== ENCOUNTER 2023-09-02 15:56 | Emergency (ER) | payer MEDICAID ==
[~2023-09-02] VITALS: Ht 167.6 cm; Wt 165.0 kg
[2023-09-02] MEDS ORDERED: LORazepam 2 mg/ml vial IM ONE (16:05)
[2023-09-02] MEDS ORDERED: haloperidol lactate 5mg/ml inj IM ONE (16:05)
[2023-09-02] MEDS ORDERED: diphenhydrAMINE 50 mg/ml inj IM ONE (16:05)
[2023-09-02 17:37] LABS: BASOPHILS # (AUTO) 0.1 X10'3 (0-0.2); BASOPHILS % (AUTO) 0.9 % (0-1); EOSINOPHILS % (AUTO) 0.3 % (0-6); HEMATOCRIT 38.9 % (35.0-45.0); HEMOGLOBIN 13.1 g/dl (12.0-16.0); LYMPHOCYTES # (AUTO) 1.4 X10'3 (1.1-4.8); LYMPHOCYTES % (AUTO) 20.5 % (21-51); MEAN CORPUSCULAR HGB CONC 33.8 g/dL (33.0-36.5); MEAN CORPUSCULAR VOLUME 94.7 FL (78-98); MEAN PLATELET VOLUME 7.8 FL (7.4-10.4); MONOCYTES # (AUTO) 0.4 X10'3 (0-0.9); NEUTROPHILS # (AUTO) 5.1 X10'3 (1.8-7.7); NEUTROPHILS % (AUTO) 73.3 % (42-75); PLATELET COUNT 280 X10'3 (140-440); RED BLOOD COUNT 4.11 X10'6 (4.20-5.60); RED CELL DISTRIBUTION WIDTH 13.8 % (11.5-14.5)
[2023-09-02 17:54] LABS: ALANINE AMINOTRANSFERASE 20 U/L (12-78); ALBUMIN 3.3 G/DL (3.4-5.0); ALKALINE PHOSPHATASE 64 IU/L (46-116); ANION GAP 9 (8-16); ASPARTATE AMINO TRANSFERASE 20 U/L (10-37); BILIRUBIN,TOTAL 0.3 MG/DL (0.1-1.0); BLOOD UREA NITROGEN 9 MG/DL (7-18); BUN/CREATININE RATIO 11.8 (10.0-20.0); CALCIUM 8.8 MG/DL (8.5-10.1); CHLORIDE 106 MMOL/L (99-107); CREATININE 0.76 MG/DL (0.40-0.90); ETHANOL < 10 MG/DL (<10); GLUCOSE 96 MG/DL (70-104); POTASSIUM 3.9 MMOL/L (3.5-5.1); SODIUM 140 MMOL/L (135-145); TOTAL CARBON DIOXIDE 24.9 MMOL/L (24-32); TOTAL PROTEIN 6.5 G/DL (6.4-8.2); eGFR 86 ML/MIN
[2023-09-02] MEDS ORDERED: OLAN5TAB75 PO (20:22)
[2023-09-02] MEDS ORDERED: HYDR50CA5 PO (20:22)
[2023-09-02 20:44] LABS: URINE HCG NEGATIVE (NEG)
[2023-09-02 20:55] LABS: URINE AMPHETAMINE SCREEN POSITIVE (Neg); URINE BARBITUATE SCREEN NEGATIVE (Neg); URINE BENZODIAZEPINES SCREEN NEGATIVE (Neg); URINE CANNABINOID SCREEN POSITIVE (Neg); URINE COCAINE SCREEN NEGATIVE (Neg); URINE METHADONE SCREEN NEGATIVE (Neg); URINE OPIATE SCREEN NEGATIVE (Neg); URINE PHENCYCLIDINE SCREEN NEGATIVE (Neg)
[2023-09-03 00:31] LABS: BILIRUBIN,URINE NEGATIVE (Neg); CLARITY,URINE SLIGHTLY CLOUDY (Clear); COLOR,URINE YELLOW (Yellow); GLUCOSE, URINE NEGATIVE (Neg); KETONES,URINE NEGATIVE (Neg); LEUKOCYTE ESTERASE ,URINE TRACE (Neg); NITRITES, URINE NEGATIVE (Neg); OCCULT BLOOD,URINE TRACE-INTACT (Neg); PH,URINE 8.5 (4.8-8.0); PROTEIN,URINE TRACE mg/dl (Neg); UROBILINOGEN,URINE 0.2 E.U/dL (0.2-1.0)
[2023-09-03 00:39] LABS: UA COLLECTION TYPE CLN CATCH MIDSTREAM
[2023-09-03 00:47] LABS: MUCUS STRANDS MANY /LPF (Neg); SQUAMOUS EPITHELIAL CELL,UR MANY /LPF (FEW)
[2023-09-03 00:49] LABS: BACTERIA,URINE 2+ /HPF (Neg); WBC,URINE 0-4 /HPF (0-4)
[2023-09-03 06:12] VITALS: TEMP 98.6
[2023-09-03 12:15] VITALS: BP 119/87; PULSE 100; RESP 18; O2SAT 100
== END 2023-09-03 12:15 | disposition home or self-care (01) ==
LOC: ER 15:56
DX: F78.A9 Other genetic related intellectual disability (principal)
CPT/HCPCS: 36415; 80053; 80305; 80320; 81001; 81025; 85025; 96372; 99285; J1200; J1630; J2060; 81003

== ENCOUNTER 2023-09-07 23:05 | Emergency (ER) | payer MEDICAID ==
[~2023-09-07] VITALS: Ht 165.1 cm; Wt 58.0 kg
[~2023-09-07 23:05] MED LIST changes: -BUPR-72 PO; +HYDR50CA5 PO; -NALT50TA PO; -NICO-630 TD; -OLAN2.5T28 PO; +OLAN5TAB75 PO; -TRAZ-251 PO
[2023-09-07] MEDS ORDERED: haloperidol lactate 5mg/ml inj IM ONE (23:15)
[2023-09-07] MEDS ORDERED: LORazepam 2 mg/ml vial IM ONE (23:15)
[2023-09-07] MEDS ORDERED: diphenhydrAMINE 50 mg/ml inj IM ONE (23:15)
[2023-09-07] MEDS ORDERED: MIDAZolam 1mg/ml 10ml vial IM ONE (23:25)
[2023-09-07 23:47] LABS: BASOPHILS # (AUTO) 0.1 X10'3 (0-0.2); BASOPHILS % (AUTO) 0.7 % (0-1); EOSINOPHILS % (AUTO) 0.1 % (0-6); HEMATOCRIT 42.1 % (35.0-45.0); HEMOGLOBIN 14.5 g/dl (12.0-16.0); LYMPHOCYTES # (AUTO) 1.5 X10'3 (1.1-4.8); LYMPHOCYTES % (AUTO) 16.7 % (21-51); MEAN CORPUSCULAR HEMOGLOBIN 32.3 PG (27.0-31.0); MEAN CORPUSCULAR HGB CONC 34.4 g/dL (33.0-36.5); MEAN CORPUSCULAR VOLUME 93.8 FL (78-98); MEAN PLATELET VOLUME 7.7 FL (7.4-10.4); MONOCYTES # (AUTO) 0.6 X10'3 (0-0.9); NEUTROPHILS # (AUTO) 7.1 X10'3 (1.8-7.7); NEUTROPHILS % (AUTO) 76.5 % (42-75); PLATELET COUNT 304 X10'3 (140-440); RED BLOOD COUNT 4.48 X10'6 (4.20-5.60); RED CELL DISTRIBUTION WIDTH 13.8 % (11.5-14.5); WHITE BLOOD COUNT 9.3 X10'3 (4.5-11.0)
[2023-09-08 00:04] LABS: ALANINE AMINOTRANSFERASE 26 U/L (12-78); ALBUMIN 3.7 G/DL (3.4-5.0); ALBUMIN/GLOBULIN RATIO 1.1 (1.1-1.5); ALKALINE PHOSPHATASE 78 IU/L (46-116); ANION GAP 11 (8-16); ASPARTATE AMINO TRANSFERASE 25 U/L (10-37); BILIRUBIN,TOTAL 0.2 MG/DL (0.1-1.0); BLOOD UREA NITROGEN 8 MG/DL (7-18); BUN/CREATININE RATIO 9.5 (10.0-20.0); CALCIUM 8.6 MG/DL (8.5-10.1); CHLORIDE 103 MMOL/L (99-107); CREATININE 0.84 MG/DL (0.40-0.90); GLUCOSE 133 MG/DL (70-104); POTASSIUM 3.9 MMOL/L (3.5-5.1); SODIUM 137 MMOL/L (135-145); TOTAL CARBON DIOXIDE 22.9 MMOL/L (24-32); TOTAL PROTEIN 7.2 G/DL (6.4-8.2); eGFR 77 ML/MIN
[2023-09-08 00:08] LABS: ETHANOL < 10 MG/DL (<10); SALICYLATE 9.8 MG/DL (4.0-20.0); THYROID STIMULATING HORMONE 1.56 ulU/ml (0.34-4.50)
[2023-09-08 00:18] LABS: URINE HCG NEGATIVE (NEG)
[2023-09-08 00:18] LABS: ACETAMINOPHEN < 2.0 UG/ML (10-30)
[2023-09-08 00:24] LABS: BILIRUBIN,URINE NEGATIVE (Neg); CLARITY,URINE SLIGHTLY CLOUDY (Clear); COLOR,URINE STRAW (Yellow); GLUCOSE, URINE NEGATIVE (Neg); KETONES,URINE NEGATIVE (Neg); LEUKOCYTE ESTERASE ,URINE NEGATIVE (Neg); NITRITES, URINE NEGATIVE (Neg); OCCULT BLOOD,URINE NEGATIVE (Neg); PROTEIN,URINE NEGATIVE (Neg); UROBILINOGEN,URINE 0.2 E.U/dL (0.2-1.0)
[2023-09-08 00:36] LABS: SQUAMOUS EPITHELIAL CELL,UR FEW /LPF (FEW); UA COLLECTION TYPE VOIDED
[2023-09-08 00:37] LABS: BACTERIA,URINE 3+ /HPF (Neg); RBC,URINE NONE SEEN /HPF (0-2); URINE AMPHETAMINE SCREEN POSITIVE (Neg); URINE BARBITUATE SCREEN NEGATIVE (Neg); URINE BENZODIAZEPINES SCREEN NEGATIVE (Neg); URINE CANNABINOID SCREEN POSITIVE (Neg); URINE COCAINE SCREEN NEGATIVE (Neg); URINE METHADONE SCREEN NEGATIVE (Neg); URINE OPIATE SCREEN NEGATIVE (Neg); URINE PHENCYCLIDINE SCREEN NEGATIVE (Neg); WBC,URINE 0-4 /HPF (0-4)
[2023-09-08] MEDS ORDERED: NO HOME MEDS (01:25)
[2023-09-08] MEDS ORDERED: nicotine 21mg patch - 24 hr TD ONE (08:35)
[2023-09-08] MEDS ORDERED: NICO-630 TD (10:33)
[2023-09-08] MEDS ORDERED: HYDR-3686 PO (10:33)
[2023-09-08] MEDS ORDERED: PROP10TA10 PO (10:33)
[2023-09-08] MEDS ORDERED: TRAZ150T78 PO (10:33)
[2023-09-08] MEDS ORDERED: OLAN5TAB5 PO (10:33)
[2023-09-08] MEDS ORDERED: BUPR150T8 PO (10:33)
[2023-09-08] MEDS ORDERED: TRAZ-251 PO (10:35)
[2023-09-08] MEDS ORDERED: hydrOXYzine 25 MG tablet PO PRN (11:00)
[2023-09-08] MEDS ORDERED: propranolol 10mg tablet PO PRN (11:00)
[2023-09-08] MEDS ORDERED: traZODone 50mg tablet PO PRN (11:00)
[2023-09-08] MEDS ORDERED: nicotine 7mg patch - 24hr TD SCH (11:08)
[2023-09-08 11:10] VITALS: BP 111/69; PULSE 87; RESP 16; TEMP 97.7; O2SAT 99
[2023-09-08] MEDS ORDERED: buPROPion SR 150mg tablet PO SCH (11:10)
[2023-09-08] MEDS ORDERED: OLANZapine 5mg rapidly disint. tablet PO SCH (21:00)
== END 2023-09-08 11:17 | disposition home or self-care (01) ==
LOC: ER 23:05
DX: T14.91XA Suicide attempt, initial encounter (principal); R45.851 Suicidal ideations; T43.622A Poisoning by amphetamines, intentional self-harm, initial encounter; Z20.822 Contact with and (suspected) exposure to COVID-19; F23 Brief psychotic disorder; F10.20 Alcohol dependence, uncomplicated; F10.10 Alcohol abuse, uncomplicated; Y90.0 Blood alcohol level of less than 20 mg/100 ml; Y92.89 Other specified places as the place of occurrence of the external cause; Y93.89 Activity, other specified; Y99.8 Other external cause status
CPT/HCPCS: 36415; 80053; 80305; 80320; 80329; 81001; 81025; 84443; 85025; 87811; 93005; 96372; 99285; J1200; J1630

== ENCOUNTER 2023-09-17 20:27 | Emergency (ER) | payer MEDICAID ==
[~2023-09-17] VITALS: Ht 170.2 cm; Wt 70.5 kg
[~2023-09-17 20:27] MED LIST changes: +BUPR150T8 PO; +HYDR-3686 PO; -HYDR50CA5 PO; +NICO-630 TD; +OLAN5TAB5 PO; -OLAN5TAB75 PO; +PROP10TA10 PO; -PROP20TA6 PO; +TRAZ-251 PO
[2023-09-17 21:11] LABS: BILIRUBIN,URINE SMALL (Neg); CLARITY,URINE CLOUDY (Clear); COLOR,URINE AMBER (Yellow); GLUCOSE, URINE NEGATIVE (Neg); KETONES,URINE 15 mg/dl (Neg); LEUKOCYTE ESTERASE ,URINE NEGATIVE (Neg); NITRITES, URINE NEGATIVE (Neg); OCCULT BLOOD,URINE LARGE (Neg); PH,URINE 5.5 (4.8-8.0); PROTEIN,URINE 30 mg/dl (Neg)
[2023-09-17 21:13] LABS: URINE HCG NEGATIVE (NEG)
[2023-09-17 21:16] LABS: UA COLLECTION TYPE CLN CATCH MIDSTREAM
[2023-09-17 21:17] LABS: MUCUS STRANDS MANY /LPF (Neg); SQUAMOUS EPITHELIAL CELL,UR MANY /LPF (FEW)
[2023-09-17 21:18] LABS: WBC,URINE 20-30 /HPF (0-4)
[2023-09-17 21:19] LABS: BACTERIA,URINE 3+ /HPF (Neg); CAL OXALATE CRYSTALS 2+ /HPF (NEGATIVE)
[2023-09-17] MEDS ORDERED: CIPR-259 PO (22:24)
[2023-09-17] MEDS ORDERED: ACYC-129 PO (22:25)
[2023-09-17 22:42] VITALS: BP 110/74; PULSE 78; RESP 16; TEMP 97.9; O2SAT 98
== END 2023-09-17 22:44 | disposition home or self-care (01) ==
LOC: ER 20:27
DX: N39.0 Urinary tract infection, site not specified (principal); F31.9 Bipolar disorder, unspecified; J45.909 Unspecified asthma, uncomplicated; Z88.1 Allergy status to other antibiotic agents; Z79.899 Other long term (current) drug therapy; Z79.1 Long term (current) use of non-steroidal anti-inflammatories (NSAID); Z79.2 Long term (current) use of antibiotics
CPT/HCPCS: 81001; 81025; 99284

== ENCOUNTER 2023-12-27 14:56 | Emergency (ER) | payer MEDICAID ==
[~2023-12-27] VITALS: Ht 170.2 cm; Wt 69.5 kg
[~2023-12-27 14:56] MED LIST changes: +CIPR-259 PO
[2023-12-27 17:14] VITALS: BP 120/82; PULSE 89; RESP 16; TEMP 98.1; O2SAT 99
== END 2023-12-27 17:16 | disposition home or self-care (01) ==
LOC: ER 14:57
DX: T19.2XXA Foreign body in vulva and vagina, initial encounter (principal); J45.909 Unspecified asthma, uncomplicated; F15.90 Other stimulant use, unspecified, uncomplicated; Z88.1 Allergy status to other antibiotic agents; Z91.041 Radiographic dye allergy status; Z79.899 Other long term (current) drug therapy
CPT/HCPCS: 72170; 99283

== ENCOUNTER 2024-01-05 01:53 | Emergency (ER) | payer MEDICAID ==
[~2024-01-05] VITALS: Ht 170.2 cm; Wt 68.2 kg
[2024-01-05 02:57] LABS: BASOPHILS # (AUTO) 0.1 X10'3 (0-0.2); BASOPHILS % (AUTO) 0.7 % (0-1); EOSINOPHILS % (AUTO) 0.3 % (0-6); HEMATOCRIT 41.2 % (35.0-45.0); HEMOGLOBIN 13.7 g/dl (12.0-16.0); LYMPHOCYTES # (AUTO) 1.2 X10'3 (1.1-4.8); LYMPHOCYTES % (AUTO) 16.9 % (21-51); MEAN CORPUSCULAR HEMOGLOBIN 32.5 PG (27.0-31.0); MEAN CORPUSCULAR HGB CONC 33.3 g/dL (33.0-36.5); MEAN CORPUSCULAR VOLUME 97.7 FL (78-98); MEAN PLATELET VOLUME 7.2 FL (7.4-10.4); MONOCYTES # (AUTO) 0.4 X10'3 (0-0.9); MONOCYTES % (AUTO) 5.1 % (2-12); NEUTROPHILS # (AUTO) 5.5 X10'3 (1.8-7.7); PLATELET COUNT 274 X10'3 (140-440); RED BLOOD COUNT 4.22 X10'6 (4.20-5.60); RED CELL DISTRIBUTION WIDTH 15.1 % (11.5-14.5); WHITE BLOOD COUNT 7.1 X10'3 (4.5-11.0)
[2024-01-05 03:06] LABS: ALBUMIN 3.1 G/DL (3.4-5.0); ANION GAP 5 (8-16); BLOOD UREA NITROGEN 10 MG/DL (7-18); BUN/CREATININE RATIO 11.6 (10.0-20.0); CALCIUM 8.6 MG/DL (8.5-10.1); CHLORIDE 108 MMOL/L (99-107); CREATININE 0.86 MG/DL (0.40-0.90); ETHANOL < 10 MG/DL (<10); GLUCOSE 114 MG/DL (70-104); POTASSIUM 3.5 MMOL/L (3.5-5.1); SODIUM 143 MMOL/L (135-145); TOTAL CARBON DIOXIDE 30.1 MMOL/L (24-32); eCRCL 88 ML/MIN; eGFR 75 ML/MIN
[2024-01-05] MEDS ORDERED: BUPR100T13 PO (04:28)
[2024-01-05] MEDS ORDERED: DIVA-74 PO (04:28)
[2024-01-05] MEDS ORDERED: VALA-7 PO (04:28)
[2024-01-05] MEDS ORDERED: NICO-687 TOP (04:28)
[2024-01-05 04:45] LABS: URINE HCG NEGATIVE (NEG)
[2024-01-05] MEDS ORDERED: propranolol 10mg tablet PO PRN (04:55)
[2024-01-05] MEDS ORDERED: BUPR-344 PO (04:58)
[2024-01-05 04:59] LABS: URINE AMPHETAMINE SCREEN NEGATIVE (Neg); URINE BARBITUATE SCREEN NEGATIVE (Neg); URINE BENZODIAZEPINES SCREEN NEGATIVE (Neg); URINE CANNABINOID SCREEN POSITIVE (Neg); URINE COCAINE SCREEN NEGATIVE (Neg); URINE METHADONE SCREEN NEGATIVE (Neg); URINE OPIATE SCREEN NEGATIVE (Neg); URINE PHENCYCLIDINE SCREEN NEGATIVE (Neg)
[2024-01-05] MEDS ORDERED: BUPROPION PO SCH (08:00)
[2024-01-05] MEDS: nicotine 21mg patch - 24 hr TD SCH (09:58)
[2024-01-05] MEDS: buPROPion SR 150mg tablet PO SCH (09:59)
[2024-01-05] MEDS: traZODone 50mg tablet PO PRN (09:59)
[2024-01-05] MEDS: divalproex 250mg tablet, delayed-release PO SCH (09:59)
[2024-01-05 10:11] VITALS: TEMP 96.8
[2024-01-05] MEDS: valacyclovir 500mg tablet PO SCH (10:21)
[2024-01-05 14:31] VITALS: BP 110/71; PULSE 105; RESP 16; O2SAT 100
== END 2024-01-05 14:35 | disposition home or self-care (01) ==
LOC: ER 01:54
DX: F23 Brief psychotic disorder (principal); Z20.822 Contact with and (suspected) exposure to COVID-19; J45.909 Unspecified asthma, uncomplicated; F15.90 Other stimulant use, unspecified, uncomplicated; Z88.1 Allergy status to other antibiotic agents; Z91.041 Radiographic dye allergy status; Z79.899 Other long term (current) drug therapy; Z79.2 Long term (current) use of antibiotics
CPT/HCPCS: 36415; 80048; 80305; 80320; 81025; 85025; 87811; 99284; 99285

== ENCOUNTER 2024-02-09 02:00 | Emergency (ER) | payer MEDICAID ==
[~2024-02-09] VITALS: Ht 170.2 cm; Wt 58.0 kg
[~2024-02-09 02:00] MED LIST changes: +BUPR-344 PO; -BUPR150T8 PO; -CIPR-259 PO; +DIVA-74 PO; -HYDR-3686 PO; -NICO-630 TD; +OLAN2.5T3 PO; -OLAN5TAB5 PO; -TRAZ-251 PO
[2024-02-09 02:51] LABS: URINE AMPHETAMINE SCREEN NEGATIVE (Neg); URINE BARBITUATE SCREEN NEGATIVE (Neg); URINE BENZODIAZEPINES SCREEN NEGATIVE (Neg); URINE CANNABINOID SCREEN NEGATIVE (Neg); URINE COCAINE SCREEN NEGATIVE (Neg); URINE METHADONE SCREEN NEGATIVE (Neg); URINE PHENCYCLIDINE SCREEN NEGATIVE (Neg)
[2024-02-09 04:36] VITALS: BP 109/71; PULSE 85; RESP 18; TEMP 98.5; O2SAT 98
== END 2024-02-09 05:24 | disposition home or self-care (01) ==
LOC: ER 02:00
DX: R00.2 Palpitations (principal); J45.909 Unspecified asthma, uncomplicated; F15.90 Other stimulant use, unspecified, uncomplicated; Z88.8 Allergy status to other drugs, medicaments and biological substances; Z88.1 Allergy status to other antibiotic agents; Z91.041 Radiographic dye allergy status; Z79.899 Other long term (current) drug therapy
CPT/HCPCS: 80305; 93005; 99284

== ENCOUNTER 2024-04-01 18:03 | Emergency (ER) | payer MEDICAID ==
[~2024-04-01] VITALS: Ht 170.2 cm; Wt 72.7 kg
[2024-04-01 18:26] VITALS: BP 124/84; PULSE 91; TEMP 99; O2SAT 98
[2024-04-01] MEDS: ondansetron 4mg rapidly disintigrating tab PO ONE (19:14)
[2024-04-01 19:23] LABS: BILIRUBIN,URINE NEGATIVE (Neg); CLARITY,URINE SLIGHTLY CLOUDY (Clear); COLOR,URINE YELLOW (Yellow); GLUCOSE, URINE NEGATIVE (Neg); KETONES,URINE NEGATIVE (Neg); LEUKOCYTE ESTERASE ,URINE TRACE (Neg); NITRITES, URINE NEGATIVE (Neg); OCCULT BLOOD,URINE NEGATIVE (Neg); PH,URINE 6.5 (4.8-8.0); PROTEIN,URINE NEGATIVE (Neg); UROBILINOGEN,URINE 0.2 E.U/dL (0.2-1.0)
[2024-04-01 19:25] LABS: UA COLLECTION TYPE CLN CATCH MIDSTREAM
[2024-04-01 19:26] LABS: URINE HCG NEGATIVE (NEG)
[2024-04-01 19:34] LABS: BASOPHILS # (AUTO) 0.1 X10'3 (0-0.2); BASOPHILS % (AUTO) 0.8 % (0-1); EOSINOPHILS # (AUTO) 0.1 X10'3 (0-0.9); EOSINOPHILS % (AUTO) 1.9 % (0-6); HEMATOCRIT 42.5 % (35.0-45.0); HEMOGLOBIN 14.2 g/dl (12.0-16.0); MEAN CORPUSCULAR HEMOGLOBIN 32.4 PG (27.0-31.0); MEAN CORPUSCULAR HGB CONC 33.4 g/dL (33.0-36.5); MEAN CORPUSCULAR VOLUME 97.1 FL (78-98); MEAN PLATELET VOLUME 7.4 FL (7.4-10.4); MONOCYTES # (AUTO) 0.5 X10'3 (0-0.9); MONOCYTES % (AUTO) 6.7 % (2-12); NEUTROPHILS # (AUTO) 4.2 X10'3 (1.8-7.7); NEUTROPHILS % (AUTO) 61.6 % (42-75); PLATELET COUNT 302 X10'3 (140-440); RED BLOOD COUNT 4.38 X10'6 (4.20-5.60); RED CELL DISTRIBUTION WIDTH 13.2 % (11.5-14.5); WHITE BLOOD COUNT 6.8 X10'3 (4.5-11.0)
[2024-04-01 19:40] LABS: BACTERIA,URINE FEW /HPF (Neg); SQUAMOUS EPITHELIAL CELL,UR MANY /LPF (FEW); WBC,URINE 0-4 /HPF (0-4)
[2024-04-01 19:41] LABS: MUCUS STRANDS FEW /LPF (Neg); RENAL CELLS, URINE FEW /HPF; TRANSITIONAL EPI CELLS,URINE MODERATE /HPF
[2024-04-01 19:49] LABS: ALANINE AMINOTRANSFERASE 25 U/L (12-78); ALBUMIN 3.5 G/DL (3.4-5.0); ALKALINE PHOSPHATASE 65 IU/L (46-116); ANION GAP 8 (8-16); ASPARTATE AMINO TRANSFERASE 16 U/L (10-37); BILIRUBIN,DIRECT 0.1 MG/DL (0-0.3); BILIRUBIN,TOTAL 0.4 MG/DL (0.1-1.0); BLOOD UREA NITROGEN 18 MG/DL (7-18); CALCIUM 8.8 MG/DL (8.5-10.1); CHLORIDE 102 MMOL/L (99-107); GLUCOSE 91 MG/DL (70-104); LIPASE 28 U/L (16-77); POTASSIUM 4.3 MMOL/L (3.5-5.1); SODIUM 141 MMOL/L (135-145); TOTAL CARBON DIOXIDE 31.3 MMOL/L (24-32); TOTAL PROTEIN 6.9 G/DL (6.4-8.2); eCRCL 75 ML/MIN; eGFR 62 ML/MIN
[2024-04-01 20:48] VITALS: RESP 18
== END 2024-04-01 20:49 | disposition home or self-care (01) ==
LOC: ER 18:04
DX: R10.9 Unspecified abdominal pain (principal); J45.909 Unspecified asthma, uncomplicated; F31.9 Bipolar disorder, unspecified; F15.90 Other stimulant use, unspecified, uncomplicated; Z88.8 Allergy status to other drugs, medicaments and biological substances; Z88.1 Allergy status to other antibiotic agents; Z91.041 Radiographic dye allergy status; Z79.899 Other long term (current) drug therapy
CPT/HCPCS: 36415; 80048; 80076; 81001; 81025; 83690; 85025; 99283

== ENCOUNTER 2024-05-03 13:43 | Emergency (ER) | payer MEDICAID ==
[~2024-05-03] VITALS: Ht 170.2 cm; Wt 73.6 kg
[2024-05-03 14:21] LABS: BASOPHILS # (AUTO) 0.1 X10'3 (0-0.2); BASOPHILS % (AUTO) 0.7 % (0-1); EOSINOPHILS % (AUTO) 0.1 % (0-6); HEMATOCRIT 45.5 % (35.0-45.0); HEMOGLOBIN 15.3 g/dl (12.0-16.0); LYMPHOCYTES # (AUTO) 1.4 X10'3 (1.1-4.8); LYMPHOCYTES % (AUTO) 12.9 % (21-51); MEAN CORPUSCULAR HEMOGLOBIN 32.6 PG (27.0-31.0); MEAN CORPUSCULAR HGB CONC 33.6 g/dL (33.0-36.5); MEAN PLATELET VOLUME 8.2 FL (7.4-10.4); MONOCYTES # (AUTO) 0.3 X10'3 (0-0.9); MONOCYTES % (AUTO) 3.2 % (2-12); NEUTROPHILS # (AUTO) 8.8 X10'3 (1.8-7.7); NEUTROPHILS % (AUTO) 83.1 % (42-75); PLATELET COUNT 308 X10'3 (140-440); RED BLOOD COUNT 4.69 X10'6 (4.20-5.60); RED CELL DISTRIBUTION WIDTH 13.3 % (11.5-14.5); WHITE BLOOD COUNT 10.5 X10'3 (4.5-11.0)
[2024-05-03] MEDS: metoprolol tartrate 1mg/ml inj IV ONE (14:35)
[2024-05-03] MEDS: normal saline 1000ml 1,000 ML IV ONE (14:41)
[2024-05-03 14:43] LABS: ALBUMIN 3.9 G/DL (3.4-5.0); ANION GAP 18 (8-16); BLOOD UREA NITROGEN 8 MG/DL (7-18); BUN/CREATININE RATIO 7.8 (10.0-20.0); CALCIUM 9.1 MG/DL (8.5-10.1); CHLORIDE 101 MMOL/L (99-107); CREATININE 1.03 MG/DL (0.40-0.90); GLUCOSE 165 MG/DL (70-104); POTASSIUM 3.8 MMOL/L (3.5-5.1); PRO BRAIN NATRIURETIC PEPTIDE 55 PG/ML (0-125); SODIUM 139 MMOL/L (135-145); TOTAL CARBON DIOXIDE 20.5 MMOL/L (24-32); eCRCL 73 ML/MIN; eGFR 60 ML/MIN
[2024-05-03 16:21] LABS: BILIRUBIN,URINE NEGATIVE (Neg); CLARITY,URINE CLEAR (Clear); COLOR,URINE STRAW (Yellow); GLUCOSE, URINE NEGATIVE (Neg); KETONES,URINE NEGATIVE (Neg); LEUKOCYTE ESTERASE ,URINE TRACE (Neg); NITRITES, URINE NEGATIVE (Neg); OCCULT BLOOD,URINE NEGATIVE (Neg); PROTEIN,URINE NEGATIVE (Neg); UA COLLECTION TYPE VOIDED; UROBILINOGEN,URINE 0.2 E.U/dL (0.2-1.0)
[2024-05-03 16:33] LABS: URINE HCG NEGATIVE (NEG)
[2024-05-03 16:40] LABS: BACTERIA,URINE FEW /HPF (Neg); MUCUS STRANDS NONE SEEN /LPF (Neg); RBC,URINE NONE SEEN /HPF (0-2); SQUAMOUS EPITHELIAL CELL,UR FEW /LPF (FEW); URINE AMPHETAMINE SCREEN NEGATIVE (Neg); URINE BARBITUATE SCREEN NEGATIVE (Neg); URINE BENZODIAZEPINES SCREEN NEGATIVE (Neg); URINE CANNABINOID SCREEN NEGATIVE (Neg); URINE COCAINE SCREEN NEGATIVE (Neg); URINE METHADONE SCREEN NEGATIVE (Neg); URINE OPIATE SCREEN NEGATIVE (Neg); URINE PHENCYCLIDINE SCREEN NEGATIVE (Neg); WBC,URINE 0-4 /HPF (0-4)
[2024-05-03 16:47] VITALS: TEMP 99.7
[2024-05-03 17:39] VITALS: BP 131/91; PULSE 103; RESP 16; O2SAT 98
== END 2024-05-03 17:43 | disposition home or self-care (01) ==
LOC: ER 13:44
DX: R00.0 Tachycardia, unspecified (principal); Z20.822 Contact with and (suspected) exposure to COVID-19; J45.909 Unspecified asthma, uncomplicated; F32.A Depression, unspecified; F15.90 Other stimulant use, unspecified, uncomplicated; Z88.8 Allergy status to other drugs, medicaments and biological substances; Z79.899 Other long term (current) drug therapy; Z79.1 Long term (current) use of non-steroidal anti-inflammatories (NSAID)
CPT/HCPCS: 36415; 71045; 80048; 80305; 81001; 81025; 83880; 84484; 85025; 87811; 93005; 96361; 96374; 99285; J3490; J7030

== ENCOUNTER 2024-05-10 20:17 | Emergency (ER) | payer MEDICAID ==
[~2024-05-10] VITALS: Ht 170.2 cm; Wt 75.0 kg
[2024-05-10 20:19] VITALS: TEMP 98.9
[2024-05-10] MEDS ORDERED: DIVA500T9 PO (21:04)
[2024-05-10] MEDS ORDERED: BUPR150T8 PO (21:04)
[2024-05-10] MEDS ORDERED: HYDR-3686 PO (21:04)
[2024-05-10] MEDS ORDERED: LUMA10.5 PO (21:04)
[2024-05-10] MEDS: buPROPion SR 150mg tablet PO ONE (21:05)
[2024-05-10] MEDS: divalproex sod 250mg ER (24-hour) tablet PO ONE (21:06)
[2024-05-10] MEDS: traZODone 50mg tablet PO ONE (21:06)
[2024-05-10 21:17] VITALS: BP 117/82; PULSE 77; RESP 16; O2SAT 99
== END 2024-05-10 21:19 | disposition home or self-care (01) ==
LOC: ER 20:18
DX: F99 Mental disorder, not otherwise specified (principal); J45.909 Unspecified asthma, uncomplicated; F31.9 Bipolar disorder, unspecified; F15.90 Other stimulant use, unspecified, uncomplicated; Z76.0 Encounter for issue of repeat prescription; Z72.89 Other problems related to lifestyle; Z88.8 Allergy status to other drugs, medicaments and biological substances; Z88.1 Allergy status to other antibiotic agents; Z79.899 Other long term (current) drug therapy
CPT/HCPCS: 99284

== ENCOUNTER 2024-05-13 12:15 | Emergency (ER) | payer MEDICAID ==
[~2024-05-13] VITALS: Ht 170.2 cm; Wt 73.6 kg
[~2024-05-13 12:15] MED LIST changes: +BUPR150T8 PO; +DIVA500T9 PO; +HYDR-3686 PO; +LUMA10.5 PO
[2024-05-13 13:54] VITALS: BP 136/91; PULSE 138; RESP 16; TEMP 98.3; O2SAT 98
--- NOTE | 2024-05-13 15:05 | NUR ---
Patient not in lobby x3 at 1445, 1450, 1506
== END 2024-05-13 15:07 | disposition left against medical advice (07) ==
LOC: ER 12:16
DX: Z00.00 Encounter for general adult medical examination without abnormal findings (principal); Z53.21 Procedure and treatment not carried out due to patient leaving prior to being seen by health care provider

== ENCOUNTER 2024-05-17 13:44 | Emergency (ER) | payer MEDICAID ==
[~2024-05-17] VITALS: Ht 170.2 cm; Wt 63.6 kg
[~2024-05-17 13:44] MED LIST changes: -BUPR150T8 PO; -DIVA500T9 PO
[2024-05-17] MEDS: normal saline 1000ml 1,000 ML IV ONE (14:19)
[2024-05-17] MEDS: LORazepam 2 mg/ml vial IV ONE (14:19)
[2024-05-17 14:32] LABS: BASOPHILS % (AUTO) 0.5 % (0-1); EOSINOPHILS % (AUTO) 0.5 % (0-6); HEMATOCRIT 41.5 % (35.0-45.0); HEMOGLOBIN 14.1 g/dl (12.0-16.0); LYMPHOCYTES # (AUTO) 1.9 X10'3 (1.1-4.8); LYMPHOCYTES % (AUTO) 24.7 % (21-51); MEAN CORPUSCULAR HEMOGLOBIN 32.8 PG (27.0-31.0); MEAN CORPUSCULAR VOLUME 96.4 FL (78-98); MEAN PLATELET VOLUME 8.3 FL (7.4-10.4); MONOCYTES # (AUTO) 0.4 X10'3 (0-0.9); MONOCYTES % (AUTO) 4.6 % (2-12); NEUTROPHILS # (AUTO) 5.3 X10'3 (1.8-7.7); NEUTROPHILS % (AUTO) 69.7 % (42-75); PLATELET COUNT 247 X10'3 (140-440); RED CELL DISTRIBUTION WIDTH 13.2 % (11.5-14.5); WHITE BLOOD COUNT 7.6 X10'3 (4.5-11.0)
[2024-05-17 14:42] LABS: ALANINE AMINOTRANSFERASE 22 U/L (12-78); ALBUMIN 3.6 G/DL (3.4-5.0); ALBUMIN/GLOBULIN RATIO 1.1 (1.1-1.5); ALKALINE PHOSPHATASE 65 IU/L (46-116); ANION GAP 8 (8-16); ASPARTATE AMINO TRANSFERASE 21 U/L (10-37); BILIRUBIN,DIRECT 0.1 MG/DL (0-0.3); BILIRUBIN,TOTAL 0.2 MG/DL (0.1-1.0); BLOOD UREA NITROGEN 8 MG/DL (7-18); BUN/CREATININE RATIO 9.1 (10.0-20.0); CALCIUM 8.8 MG/DL (8.5-10.1); CHLORIDE 107 MMOL/L (99-107); CREATININE 0.88 MG/DL (0.40-0.90); GLUCOSE 122 MG/DL (70-104); MAGNESIUM 1.8 MG/DL (1.5-2.4); POTASSIUM 3.9 MMOL/L (3.5-5.1); SODIUM 142 MMOL/L (135-145); TOTAL CARBON DIOXIDE 26.8 MMOL/L (24-32); TOTAL PROTEIN 6.8 G/DL (6.4-8.2); eCRCL 85 ML/MIN; eGFR 72 ML/MIN
[2024-05-17 14:44] LABS: ETHANOL < 10 MG/DL (<10)
[2024-05-17] MEDS: diphenhydrAMINE 50 mg/ml inj IV ONE (15:04)
[2024-05-17] MEDS: haloperidol lactate 5mg/ml inj IM ONE (15:04)
[2024-05-17] MEDS ORDERED: DIVA125T2 PO (15:21)
[2024-05-17 15:22] VITALS: TEMP 98.5
[2024-05-17] MEDS ORDERED: HYDR-3686 PO (15:22)
[2024-05-17 15:27] LABS: BILIRUBIN,URINE NEGATIVE (Neg); CLARITY,URINE SLIGHTLY CLOUDY (Clear); COLOR,URINE STRAW (Yellow); GLUCOSE, URINE NEGATIVE (Neg); KETONES,URINE NEGATIVE (Neg); LEUKOCYTE ESTERASE ,URINE NEGATIVE (Neg); NITRITES, URINE NEGATIVE (Neg); OCCULT BLOOD,URINE NEGATIVE (Neg); PROTEIN,URINE NEGATIVE (Neg); UROBILINOGEN,URINE 0.2 E.U/dL (0.2-1.0)
[2024-05-17 15:30] LABS: UA COLLECTION TYPE CLN CATCH MIDSTREAM
[2024-05-17 15:31] LABS: URINE HCG NEGATIVE (NEG)
[2024-05-17 15:36] LABS: BACTERIA,URINE 4+ /HPF (Neg); MUCUS STRANDS FEW /LPF (Neg); RBC,URINE NONE SEEN /HPF (0-2); SQUAMOUS EPITHELIAL CELL,UR MANY /LPF (FEW); WBC,URINE 0-4 /HPF (0-4)
[2024-05-17 15:38] LABS: URINE AMPHETAMINE SCREEN POSITIVE (Neg); URINE BARBITUATE SCREEN NEGATIVE (Neg); URINE BENZODIAZEPINES SCREEN NEGATIVE (Neg); URINE COCAINE SCREEN NEGATIVE (Neg); URINE METHADONE SCREEN NEGATIVE (Neg)
[2024-05-17 15:39] LABS: URINE CANNABINOID SCREEN NEGATIVE (Neg); URINE OPIATE SCREEN NEGATIVE (Neg); URINE PHENCYCLIDINE SCREEN NEGATIVE (Neg)
[2024-05-17 16:35] VITALS: BP 98/61; PULSE 105; RESP 16; O2SAT 97
== END 2024-05-17 16:38 | disposition home or self-care (01) ==
LOC: ER 13:44
DX: F41.9 Anxiety disorder, unspecified (principal); R45.851 Suicidal ideations; F15.90 Other stimulant use, unspecified, uncomplicated; F19.90 Other psychoactive substance use, unspecified, uncomplicated; F10.90 Alcohol use, unspecified, uncomplicated; J45.909 Unspecified asthma, uncomplicated; F32.A Depression, unspecified; Z98.890 Other specified postprocedural states; Z20.822 Contact with and (suspected) exposure to COVID-19; Z88.8 Allergy status to other drugs, medicaments and biological substances; Z88.1 Allergy status to other antibiotic agents; Z79.899 Other long term (current) drug therapy
CPT/HCPCS: 36415; 80048; 80076; 80305; 80320; 81001; 81025; 83735; 85025; 87811; 93005; 96361; 96372; 96374; 96375; 99284; J1200; J1630; J2060; J7030

== ENCOUNTER 2024-05-19 18:48 | Emergency (ER) | payer MEDICAID ==
[~2024-05-19] VITALS: Ht 170.2 cm; Wt 64.0 kg
[~2024-05-19 18:48] MED LIST changes: +DIVA125T2 PO; -LUMA10.5 PO; -OLAN2.5T3 PO
[2024-05-19] MEDS: diphenhydrAMINE 50 mg/ml inj IM ONE (18:57)
[2024-05-19] MEDS: LORazepam 2 mg/ml vial IM ONE (18:57)
[2024-05-19] MEDS: haloperidol lactate 5mg/ml inj ONE (18:58)
[2024-05-19] MEDS: haloperidol lactate 5mg/ml inj IM ONE (18:59)
[2024-05-19 20:26] LABS: BASOPHILS # (AUTO) 0.1 X10'3 (0-0.2); EOSINOPHILS % (AUTO) 0.6 % (0-6); HEMATOCRIT 38.9 % (35.0-45.0); HEMOGLOBIN 13.3 g/dl (12.0-16.0); LYMPHOCYTES # (AUTO) 1.5 X10'3 (1.1-4.8); LYMPHOCYTES % (AUTO) 25.8 % (21-51); MEAN CORPUSCULAR HEMOGLOBIN 32.7 PG (27.0-31.0); MEAN CORPUSCULAR HGB CONC 34.2 g/dL (33.0-36.5); MEAN CORPUSCULAR VOLUME 95.6 FL (78-98); MEAN PLATELET VOLUME 7.5 FL (7.4-10.4); MONOCYTES # (AUTO) 0.4 X10'3 (0-0.9); MONOCYTES % (AUTO) 6.6 % (2-12); NEUTROPHILS # (AUTO) 3.8 X10'3 (1.8-7.7); PLATELET COUNT 228 X10'3 (140-440); RED BLOOD COUNT 4.07 X10'6 (4.20-5.60); RED CELL DISTRIBUTION WIDTH 13.1 % (11.5-14.5); WHITE BLOOD COUNT 5.7 X10'3 (4.5-11.0)
[2024-05-19] MEDS: ziprasidone IM 20mg inj **IM only IM ONE (20:27)
[2024-05-19 20:38] LABS: ALBUMIN 3.2 G/DL (3.4-5.0); ANION GAP 6 (8-16); BLOOD UREA NITROGEN 11 MG/DL (7-18); BUN/CREATININE RATIO 12.4 (10.0-20.0); CALCIUM 8.4 MG/DL (8.5-10.1); CHLORIDE 106 MMOL/L (99-107); CREATININE 0.89 MG/DL (0.40-0.90); GLUCOSE 98 MG/DL (70-104); SODIUM 140 MMOL/L (135-145); TOTAL CARBON DIOXIDE 27.9 MMOL/L (24-32); eCRCL 84 ML/MIN; eGFR 71 ML/MIN
[2024-05-19 20:44] LABS: ETHANOL < 10 MG/DL (<10)
[2024-05-19] MEDS ORDERED: potassium bicarbonate/cit acid 25mEq tablet.effervescent PO STA (21:11)
[2024-05-19] MEDS: potassium Cl 20 mEq SR tablet PO STA (23:19)
[2024-05-20] MEDS: magnesium oxide 400mg tablet PO ONE (06:51)
[2024-05-20 08:29] VITALS: BP 104/67; PULSE 89; RESP 14; TEMP 97.8; O2SAT 98
== END 2024-05-20 08:33 | disposition home or self-care (01) ==
LOC: ER 18:49
DX: E87.6 Hypokalemia (principal); F24 Shared psychotic disorder; F15.90 Other stimulant use, unspecified, uncomplicated; J45.909 Unspecified asthma, uncomplicated; F32.A Depression, unspecified; F28 Other psychotic disorder not due to a substance or known physiological condition; F10.90 Alcohol use, unspecified, uncomplicated; Z88.8 Allergy status to other drugs, medicaments and biological substances; Z88.1 Allergy status to other antibiotic agents; Z79.899 Other long term (current) drug therapy; Z98.890 Other specified postprocedural states; Z20.822 Contact with and (suspected) exposure to COVID-19
CPT/HCPCS: 36415; 80048; 80320; 85025; 87811; 96372; 99285; J1200; J1630; J2060

== ENCOUNTER 2024-06-13 18:58 | Emergency (ER) | payer MEDICAID ==
[~2024-06-13] VITALS: Ht 170.2 cm; Wt 76.8 kg
[2024-06-13 19:33] VITALS: BP 110/78; PULSE 85; RESP 16; TEMP 98; O2SAT 97
[2024-06-13 19:53] LABS: BILIRUBIN,URINE NEGATIVE (Neg); CLARITY,URINE CLOUDY (Clear); COLOR,URINE YELLOW (Yellow); GLUCOSE, URINE NEGATIVE (Neg); KETONES,URINE NEGATIVE (Neg); LEUKOCYTE ESTERASE ,URINE MODERATE (Neg); NITRITES, URINE NEGATIVE (Neg); OCCULT BLOOD,URINE NEGATIVE (Neg); PROTEIN,URINE NEGATIVE (Neg); UROBILINOGEN,URINE 0.2 E.U/dL (0.2-1.0)
[2024-06-13 20:09] LABS: UA COLLECTION TYPE CLN CATCH MIDSTREAM
[2024-06-13 20:10] LABS: WBC,URINE 20-30 /HPF (0-4)
[2024-06-13 20:11] LABS: BACTERIA,URINE 3+ /HPF (Neg); MUCUS STRANDS FEW /LPF (Neg); RBC,URINE 0-2 /HPF (0-2); RENAL CELLS, URINE FEW /HPF; SQUAMOUS EPITHELIAL CELL,UR MODERATE /LPF (FEW); TRANSITIONAL EPI CELLS,URINE FEW /HPF; WBC CLUMPS,URINE FEW /HPF (NEGATIVE)
== END 2024-06-13 22:49 | disposition left against medical advice (07) ==
LOC: ER 18:59
DX: Z76.0 Encounter for issue of repeat prescription (principal); Z53.21 Procedure and treatment not carried out due to patient leaving prior to being seen by health care provider
CPT/HCPCS: 81001; 87077; 87088; 87186

== ENCOUNTER 2024-06-24 20:26 | Emergency (ER) | payer MEDICAID ==
[~2024-06-24] VITALS: Ht 170.2 cm; Wt 74.5 kg
[2024-06-24 20:29] VITALS: BP 113/81; RESP 16; TEMP 99
[2024-06-24 21:20] VITALS: PULSE 104; O2SAT 100
== END 2024-06-24 23:17 | disposition home or self-care (01) ==
LOC: ER 20:27
DX: R50.83 Postvaccination fever (principal); J45.909 Unspecified asthma, uncomplicated; F32.A Depression, unspecified; F15.90 Other stimulant use, unspecified, uncomplicated; Z88.8 Allergy status to other drugs, medicaments and biological substances; Z88.1 Allergy status to other antibiotic agents; Z91.040 Latex allergy status; Z91.041 Radiographic dye allergy status; Z79.899 Other long term (current) drug therapy
CPT/HCPCS: 99282

== ENCOUNTER 2024-06-29 07:52 | Emergency (ER) | payer MEDICAID ==
[~2024-06-29] VITALS: Ht 170.2 cm; Wt 76.6 kg
[2024-06-29] MEDS ORDERED: BUPR300T53 PO (08:14)
[2024-06-29] MEDS ORDERED: LUMA42CA PO (08:14)
[2024-06-29] MEDS ORDERED: DIVA500T4 PO (08:14)
[2024-06-29] MEDS: buPROPion SR 150mg tablet PO SCH (08:17)
[2024-06-29] MEDS: divalproex sod 250mg ER (24-hour) tablet PO SCH (08:18)
[2024-06-29 08:22] VITALS: BP 124/77; PULSE 97; RESP 16; TEMP 98; O2SAT 99
== END 2024-06-29 08:23 | disposition home or self-care (01) ==
LOC: ER 07:53
DX: F32.A Depression, unspecified (principal); Z76.0 Encounter for issue of repeat prescription; J45.909 Unspecified asthma, uncomplicated; F15.90 Other stimulant use, unspecified, uncomplicated; Z88.8 Allergy status to other drugs, medicaments and biological substances; Z88.1 Allergy status to other antibiotic agents; Z91.040 Latex allergy status; Z91.041 Radiographic dye allergy status; Z79.899 Other long term (current) drug therapy; Z79.2 Long term (current) use of antibiotics
CPT/HCPCS: 99283

== ENCOUNTER 2024-06-30 07:31 | Emergency (ER) | payer MEDICAID ==
[~2024-06-30] VITALS: Ht 170.2 cm; Wt 74.5 kg
[~2024-06-30 07:31] MED LIST changes: +BUPR300T53 PO; +DIVA500T4 PO; +LUMA42CA PO
[2024-06-30] MEDS ORDERED: buPROPion SR 150mg tablet PO ONE (09:10)
[2024-06-30] MEDS: divalproex sod 250mg ER (24-hour) tablet PO ONE (09:21)
[2024-06-30] MEDS: buPROPion SR 150mg tablet PO ONE (09:21)
[2024-06-30 09:22] VITALS: BP 121/82; PULSE 95; RESP 16; TEMP 98; O2SAT 99
== END 2024-06-30 09:27 | disposition home or self-care (01) ==
LOC: ER 07:31
DX: Z76.0 Encounter for issue of repeat prescription (principal); J45.909 Unspecified asthma, uncomplicated; F32.A Depression, unspecified; F15.90 Other stimulant use, unspecified, uncomplicated; F10.90 Alcohol use, unspecified, uncomplicated; Z88.8 Allergy status to other drugs, medicaments and biological substances; Z88.1 Allergy status to other antibiotic agents; Z91.040 Latex allergy status; Z79.899 Other long term (current) drug therapy
CPT/HCPCS: 99283

== ENCOUNTER 2024-08-03 10:05 | Emergency (ER) | payer MEDICAID ==
[~2024-08-03] VITALS: Ht 165.1 cm; Wt 72.7 kg
[~2024-08-03 10:05] MED LIST changes: -DIVA500T4 PO
[2024-08-03] MEDS: LORazepam 2 mg/ml vial IM ONE (10:48)
[2024-08-03 11:13] LABS: BILIRUBIN,URINE NEGATIVE (Neg); CLARITY,URINE CLEAR (Clear); COLOR,URINE YELLOW (Yellow); GLUCOSE, URINE NEGATIVE (Neg); KETONES,URINE NEGATIVE (Neg); LEUKOCYTE ESTERASE ,URINE NEGATIVE (Neg); NITRITES, URINE NEGATIVE (Neg); OCCULT BLOOD,URINE NEGATIVE (Neg); PROTEIN,URINE NEGATIVE (Neg); UROBILINOGEN,URINE 0.2 E.U/dL (0.2-1.0)
[2024-08-03 11:15] LABS: UA COLLECTION TYPE VOIDED
[2024-08-03 11:17] LABS: URINE HCG NEGATIVE (NEG)
[2024-08-03 11:20] LABS: BASOPHILS % (AUTO) 0.5 % (0-1); EOSINOPHILS % (AUTO) 0.5 % (0-6); HEMATOCRIT 43.6 % (35.0-45.0); LYMPHOCYTES # (AUTO) 1.8 X10'3 (1.1-4.8); LYMPHOCYTES % (AUTO) 20.2 % (21-51); MEAN CORPUSCULAR HGB CONC 34.5 g/dL (33.0-36.5); MEAN CORPUSCULAR VOLUME 95.7 FL (78-98); MEAN PLATELET VOLUME 8.3 FL (7.4-10.4); MONOCYTES # (AUTO) 0.6 X10'3 (0-0.9); MONOCYTES % (AUTO) 7.1 % (2-12); NEUTROPHILS # (AUTO) 6.3 X10'3 (1.8-7.7); NEUTROPHILS % (AUTO) 71.7 % (42-75); PLATELET COUNT 333 X10'3 (140-440); RED BLOOD COUNT 4.56 X10'6 (4.20-5.60); RED CELL DISTRIBUTION WIDTH 13.3 % (11.5-14.5); WHITE BLOOD COUNT 8.8 X10'3 (4.5-11.0)
[2024-08-03 11:26] LABS: URINE AMPHETAMINE SCREEN POSITIVE (Neg); URINE BARBITUATE SCREEN NEGATIVE (Neg); URINE BENZODIAZEPINES SCREEN NEGATIVE (Neg); URINE CANNABINOID SCREEN NEGATIVE (Neg); URINE COCAINE SCREEN NEGATIVE (Neg); URINE METHADONE SCREEN NEGATIVE (Neg); URINE OPIATE SCREEN NEGATIVE (Neg); URINE PHENCYCLIDINE SCREEN NEGATIVE (Neg)
[2024-08-03] MEDS: nicotine 21mg patch - 24 hr TD ONE (12:05)
[2024-08-03 12:12] LABS: ALBUMIN 3.5 G/DL (3.4-5.0); ANION GAP 8 (8-16); BLOOD UREA NITROGEN 9 MG/DL (7-18); BUN/CREATININE RATIO 11.5 (10.0-20.0); CALCIUM 9.1 MG/DL (8.5-10.1); CHLORIDE 106 MMOL/L (99-107); CREATININE 0.78 MG/DL (0.40-0.90); ETHANOL < 10 MG/DL (<10); GLUCOSE 114 MG/DL (70-104); POTASSIUM 3.8 MMOL/L (3.5-5.1); PRO BRAIN NATRIURETIC PEPTIDE 56 PG/ML (0-125); SALICYLATE 6.3 MG/DL (4.0-20.0); SODIUM 140 MMOL/L (135-145); TOTAL CARBON DIOXIDE 25.6 MMOL/L (24-32); eCRCL 89 ML/MIN; eGFR 83 ML/MIN
[2024-08-03] MEDS ORDERED: LORA-269 PO (19:14)
[2024-08-03] MEDS ORDERED: PROP20TA6 PO (19:14)
[2024-08-03] MEDS ORDERED: DIVA500T9 (19:14)
[2024-08-03] MEDS ORDERED: TRAZ-251 PO (19:14)
[2024-08-03] MEDS ORDERED: BUPR-564 PO (20:00)
[2024-08-03] MEDS ORDERED: LUMA42CA PO (20:01)
[2024-08-04] MEDS: LORazepam 1 MG tablet PO ONE (06:01)
[2024-08-04] MEDS ORDERED: propranolol 10mg tablet PO PRN (08:30)
[2024-08-04 10:37] VITALS: TEMP 98.1
[2024-08-04 10:46] VITALS: BP 116/73; PULSE 107; RESP 12; O2SAT 99
[2024-08-04] MEDS ORDERED: LORazepam 1 MG tablet PO SCH (16:00)
[2024-08-04] MEDS ORDERED: traZODone 50mg tablet PO SCH (21:00)
[2024-08-04] MEDS ORDERED: buPROPion SR 150mg tablet PO SCH (21:00)
[2024-08-05] MEDS ORDERED: divalproex sod 250mg ER (24-hour) tablet PO SCH (08:00)
== END 2024-08-04 10:55 | disposition home or self-care (01) ==
LOC: ER 10:05
DX: T39.012A Poisoning by aspirin, intentional self-harm, initial encounter (principal); Z20.822 Contact with and (suspected) exposure to COVID-19; R45.851 Suicidal ideations; F32.A Depression, unspecified; J45.909 Unspecified asthma, uncomplicated; F15.90 Other stimulant use, unspecified, uncomplicated; R07.89 Other chest pain; I48.91 Unspecified atrial fibrillation; Z88.8 Allergy status to other drugs, medicaments and biological substances; Z88.1 Allergy status to other antibiotic agents; Z91.040 Latex allergy status; Z79.899 Other long term (current) drug therapy; Y92.89 Other specified places as the place of occurrence of the external cause
CPT/HCPCS: 36415; 71045; 80048; 80305; 80320; 80329; 81003; 81025; 83880; 84443; 84484; 85025; 87811; 93005; 96372; 99285; J2060

== ENCOUNTER 2024-08-10 18:38 | Emergency (ER) | payer MEDICAID ==
[~2024-08-10] VITALS: Ht 172.7 cm; Wt 73.0 kg
[~2024-08-10 18:38] MED LIST changes: -BUPR-344 PO; +BUPR-564 PO; -BUPR300T53 PO; -DIVA-74 PO; -DIVA125T2 PO; +DIVA500T9; -HYDR-3686 PO; +LORA-269 PO; -PROP10TA10 PO; +PROP20TA6 PO; +TRAZ-251 PO
[2024-08-10] MEDS: LORazepam 2 mg/ml vial IM ONE (19:11)
[2024-08-10] MEDS: haloperidol lactate 5mg/ml inj IM ONE (19:11)
[2024-08-10] MEDS: diphenhydrAMINE 50 mg/ml inj IM ONE (19:12)
[2024-08-10 20:09] LABS: BASOPHILS % (AUTO) 0.8 % (0-1); EOSINOPHILS % (AUTO) 0.1 % (0-6); HEMATOCRIT 38.3 % (35.0-45.0); HEMOGLOBIN 12.9 g/dl (12.0-16.0); LYMPHOCYTES % (AUTO) 16.7 % (21-51); MEAN CORPUSCULAR HEMOGLOBIN 32.2 PG (27.0-31.0); MEAN CORPUSCULAR HGB CONC 33.7 g/dL (33.0-36.5); MEAN CORPUSCULAR VOLUME 95.5 FL (78-98); MEAN PLATELET VOLUME 7.2 FL (7.4-10.4); MONOCYTES # (AUTO) 0.4 X10'3 (0-0.9); MONOCYTES % (AUTO) 5.9 % (2-12); NEUTROPHILS # (AUTO) 4.8 X10'3 (1.8-7.7); NEUTROPHILS % (AUTO) 76.5 % (42-75); PLATELET COUNT 291 X10'3 (140-440); RED BLOOD COUNT 4.01 X10'6 (4.20-5.60); RED CELL DISTRIBUTION WIDTH 13.5 % (11.5-14.5); WHITE BLOOD COUNT 6.3 X10'3 (4.5-11.0)
[2024-08-10 20:22] LABS: BILIRUBIN,URINE NEGATIVE (Neg); CLARITY,URINE CLOUDY (Clear); COLOR,URINE YELLOW (Yellow); GLUCOSE, URINE NEGATIVE (Neg); KETONES,URINE NEGATIVE (Neg); LEUKOCYTE ESTERASE ,URINE TRACE (Neg); NITRITES, URINE NEGATIVE (Neg); OCCULT BLOOD,URINE LARGE (Neg); PH,URINE 6.5 (4.8-8.0); PROTEIN,URINE TRACE mg/dl (Neg); UROBILINOGEN,URINE 0.2 E.U/dL (0.2-1.0)
[2024-08-10 20:23] LABS: URINE HCG NEGATIVE (NEG)
[2024-08-10 20:27] LABS: UA COLLECTION TYPE VOIDED
[2024-08-10 20:28] LABS: RBC,URINE TNTC /HPF (0-2); SQUAMOUS EPITHELIAL CELL,UR MANY /LPF (FEW)
[2024-08-10 20:29] LABS: SPERM FEW /HPF
[2024-08-10 20:30] LABS: BACTERIA,URINE FEW /HPF (Neg)
[2024-08-10 20:33] LABS: ALBUMIN 3.3 G/DL (3.4-5.0); ANION GAP 8 (8-16); BLOOD UREA NITROGEN 8 MG/DL (7-18); BUN/CREATININE RATIO 9.4 (10.0-20.0); CALCIUM 8.6 MG/DL (8.5-10.1); CHLORIDE 104 MMOL/L (99-107); CREATININE 0.85 MG/DL (0.40-0.90); ETHANOL < 10 MG/DL (<10); GLUCOSE 97 MG/DL (70-104); POTASSIUM 3.9 MMOL/L (3.5-5.1); SODIUM 140 MMOL/L (135-145); THYROID STIMULATING HORMONE 0.92 ulU/ml (0.34-4.50); TOTAL CARBON DIOXIDE 28.4 MMOL/L (24-32); eCRCL 91 ML/MIN; eGFR 75 ML/MIN
[2024-08-10 20:36] LABS: URINE AMPHETAMINE SCREEN POSITIVE (Neg); URINE BARBITUATE SCREEN NEGATIVE (Neg); URINE BENZODIAZEPINES SCREEN NEGATIVE (Neg); URINE CANNABINOID SCREEN NEGATIVE (Neg); URINE COCAINE SCREEN NEGATIVE (Neg); URINE METHADONE SCREEN NEGATIVE (Neg); URINE OPIATE SCREEN NEGATIVE (Neg); URINE PHENCYCLIDINE SCREEN NEGATIVE (Neg)
[2024-08-10] MEDS: FOSFOMYCIN TROMETHAMINE 3 GM PACKET PO ONE (23:51)
[2024-08-11 05:31] VITALS: BP 119/78; PULSE 113; RESP 17; TEMP 98.2; O2SAT 99
[2024-08-11] MEDS: nicotine 21mg patch - 24 hr TD ONE (07:48)
[2024-08-11] MEDS ORDERED: propranolol 10mg tablet PO PRN (08:20)
[2024-08-11] MEDS: Lumateperone Tosylate (Caplyta) 42 MG CAPSULE PO SCH (08:23)
[2024-08-11] MEDS: divalproex sod 250mg ER (24-hour) tablet PO SCH (08:36)
[2024-08-11] MEDS: LORazepam 1 MG tablet PO SCH (08:36)
[2024-08-11] MEDS ORDERED: BUPROPION HCL 150MG XL 24 HR 150 MG TAB PO SCH (21:00)
[2024-08-11] MEDS ORDERED: traZODone 50mg tablet PO SCH (21:00)
== END 2024-08-11 11:43 | disposition home or self-care (01) ==
LOC: ER 18:38
DX: F15.99 Other stimulant use, unspecified with unspecified stimulant-induced disorder (principal); Z20.822 Contact with and (suspected) exposure to COVID-19; J45.909 Unspecified asthma, uncomplicated; F32.A Depression, unspecified; Z88.8 Allergy status to other drugs, medicaments and biological substances; Z91.040 Latex allergy status; Z79.899 Other long term (current) drug therapy
CPT/HCPCS: 36415; 80048; 80305; 80320; 81001; 81025; 84443; 85025; 87811; 96372; 99291; J1200; J1630; J2060; J7030; 99284

== ENCOUNTER 2024-08-24 10:26 | Emergency (ER) | payer MEDICARE, MEDICAID ==
[~2024-08-24] VITALS: Ht 170.2 cm; Wt 73.0 kg
[2024-08-24 10:47] LABS: BILIRUBIN,URINE SMALL (Neg); CLARITY,URINE SLIGHTLY CLOUDY (Clear); COLOR,URINE YELLOW (Yellow); GLUCOSE, URINE NEGATIVE (Neg); KETONES,URINE 15 mg/dl (Neg); LEUKOCYTE ESTERASE ,URINE SMALL (Neg); NITRITES, URINE NEGATIVE (Neg); OCCULT BLOOD,URINE SMALL (Neg); PH,URINE 7.5 (4.8-8.0); PROTEIN,URINE TRACE mg/dl (Neg); UROBILINOGEN,URINE 0.2 E.U/dL (0.2-1.0)
[2024-08-24 10:49] LABS: URINE HCG NEGATIVE (NEG)
[2024-08-24 10:52] LABS: UA COLLECTION TYPE CLN CATCH MIDSTREAM
[2024-08-24 10:54] LABS: BACTERIA,URINE FEW /HPF (Neg); MUCUS STRANDS FEW /LPF (Neg); SQUAMOUS EPITHELIAL CELL,UR MANY /LPF (FEW)
[2024-08-24] MEDS ORDERED: NITR100C6 PO (11:05)
[2024-08-24] MEDS ORDERED: PHEN-716 PO (11:05)
[2024-08-24] MEDS: nitrofuran monohydrate/nitrofuran macrocrysal 100 MG (MacroBID) capsule PO ONE (11:23)
[2024-08-24 11:27] VITALS: BP 140/89; PULSE 69; RESP 16; TEMP 98.9; O2SAT 99
== END 2024-08-24 11:28 | disposition home or self-care (01) ==
LOC: ER 10:27
DX: N39.0 Urinary tract infection, site not specified (principal); J45.909 Unspecified asthma, uncomplicated; F32.A Depression, unspecified; F29 Unspecified psychosis not due to a substance or known physiological condition; F10.90 Alcohol use, unspecified, uncomplicated; F15.90 Other stimulant use, unspecified, uncomplicated; F19.90 Other psychoactive substance use, unspecified, uncomplicated; Z88.8 Allergy status to other drugs, medicaments and biological substances; Z88.1 Allergy status to other antibiotic agents; Z91.040 Latex allergy status; Z79.899 Other long term (current) drug therapy
CPT/HCPCS: 81001; 81025; 99283

== ENCOUNTER 2024-09-12 12:23 | Emergency (ER) | payer MEDICARE, MEDICAID ==
[~2024-09-12] VITALS: Ht 170.2 cm; Wt 74.0 kg
[~2024-09-12 12:23] MED LIST changes: +NITR100C6 PO; +PHEN-716 PO
[2024-09-12] MEDS: LORazepam 2 mg/ml vial IM ONE (12:45)
[2024-09-12] MEDS: diphenhydrAMINE 50 mg/ml inj IM ONE (12:46)
[2024-09-12] MEDS: ziprasidone IM 20mg inj **IM only IM ONE (12:47)
[2024-09-12] MEDS: ketamine 50 mg/ml 10ml vial IM ONE (13:00)
[2024-09-12] MEDS: ketamine 50mg/5ml syringe IM ONE (13:10)
[2024-09-12 13:26] LABS: BASOPHILS # (AUTO) 0.1 X10'3 (0-0.2); EOSINOPHILS % (AUTO) 0.1 % (0-6); HEMATOCRIT 43.3 % (35.0-45.0); HEMOGLOBIN 14.4 g/dl (12.0-16.0); LYMPHOCYTES # (AUTO) 1.7 X10'3 (1.1-4.8); MEAN CORPUSCULAR HGB CONC 33.2 g/dL (33.0-36.5); MONOCYTES # (AUTO) 0.5 X10'3 (0-0.9)
[2024-09-12 13:28] LABS: BASOPHILS % (AUTO) 0.7 % (0-1); LYMPHOCYTES % (AUTO) 19.6 % (21-51); MEAN CORPUSCULAR VOLUME 96.4 FL (78-98); MEAN PLATELET VOLUME 7.9 FL (7.4-10.4); MONOCYTES % (AUTO) 5.8 % (2-12); NEUTROPHILS # (AUTO) 6.5 X10'3 (1.8-7.7); NEUTROPHILS % (AUTO) 73.8 % (42-75); PLATELET COUNT 360 X10'3 (140-440); RED BLOOD COUNT 4.49 X10'6 (4.20-5.60); RED CELL DISTRIBUTION WIDTH 13.6 % (11.5-14.5); WHITE BLOOD COUNT 8.8 X10'3 (4.5-11.0)
[2024-09-12] MEDS: normal saline 1000ML IV soln IVB ONE (13:29)
[2024-09-12] MEDS: magnesium sulf-water 2g/50mL 50 ML IV ONE (13:29)
[2024-09-12 14:04] LABS: ALBUMIN/GLOBULIN RATIO 1.1 (1.1-1.5); ALKALINE PHOSPHATASE 75 IU/L (46-116); ANION GAP 26 (8-16); ASPARTATE AMINO TRANSFERASE 21 U/L (10-37); BILIRUBIN,DIRECT 0.1 MG/DL (0-0.3); BILIRUBIN,TOTAL 0.4 MG/DL (0.1-1.0); BLOOD UREA NITROGEN 14 MG/DL (7-18); BUN/CREATININE RATIO 8.1 (10.0-20.0); CALCIUM 9.2 MG/DL (8.5-10.1); CHLORIDE 104 MMOL/L (99-107); CKMB RELATIVE INDEX 0.2 RATIO (0-2.5); CREATINE KINASE 343 U/L (26-192); CREATINE KINASE MB 0.6 ng/ml (0.3-3.6); CREATININE 1.73 MG/DL (0.40-0.90); GLUCOSE 238 MG/DL (70-104); MAGNESIUM 2.2 MG/DL (1.5-2.4); POTASSIUM 3.5 MMOL/L (3.5-5.1); SALICYLATE 2.7 MG/DL (4.0-20.0); SODIUM 143 MMOL/L (135-145); THYROID STIMULATING HORMONE 1.59 ulU/ml (0.34-4.50); TOTAL PROTEIN 7.6 G/DL (6.4-8.2); eCRCL 43 ML/MIN; eGFR 33 ML/MIN
[2024-09-12 14:09] LABS: ACETAMINOPHEN < 2.0 UG/ML (10-30); ETHANOL < 10 MG/DL (<10)
[2024-09-12 14:10] LABS: TOTAL CARBON DIOXIDE 13.3 MMOL/L (24-32)
[2024-09-12 15:59] LABS: URINE HCG NEGATIVE (NEG)
[2024-09-12 16:02] LABS: BILIRUBIN,URINE NEGATIVE (Neg); CLARITY,URINE SLIGHTLY CLOUDY (Clear); COLOR,URINE YELLOW (Yellow); GLUCOSE, URINE NEGATIVE (Neg); KETONES,URINE NEGATIVE (Neg); LEUKOCYTE ESTERASE ,URINE NEGATIVE (Neg); NITRITES, URINE NEGATIVE (Neg); OCCULT BLOOD,URINE SMALL (Neg); PROTEIN,URINE 100 mg/dl (Neg); UROBILINOGEN,URINE 0.2 E.U/dL (0.2-1.0)
[2024-09-12 16:18] LABS: URINE AMPHETAMINE SCREEN POSITIVE (Neg); URINE BARBITUATE SCREEN NEGATIVE (Neg); URINE BENZODIAZEPINES SCREEN NEGATIVE (Neg); URINE CANNABINOID SCREEN POSITIVE (Neg); URINE COCAINE SCREEN NEGATIVE (Neg); URINE METHADONE SCREEN NEGATIVE (Neg); URINE OPIATE SCREEN NEGATIVE (Neg); URINE PHENCYCLIDINE SCREEN NEGATIVE (Neg)
[2024-09-12 16:28] LABS: UA COLLECTION TYPE VOIDED
[2024-09-12 16:31] LABS: WBC,URINE 0-4 /HPF (0-4)
[2024-09-12 16:32] LABS: BACTERIA,URINE 1+ /HPF (Neg); MUCUS STRANDS FEW /LPF (Neg); RENAL CELLS, URINE FEW /HPF; SQUAMOUS EPITHELIAL CELL,UR MANY /LPF (FEW); TRANSITIONAL EPI CELLS,URINE FEW /HPF
[2024-09-12] MEDS ORDERED: DIVA500T9 PO (17:07)
[2024-09-12] MEDS ORDERED: PROP10TA10 PO (17:07)
[2024-09-12] MEDS ORDERED: LUMA42CA PO (17:07)
[2024-09-12] MEDS ORDERED: BUPR100T13 PO (17:07)
[2024-09-12] MEDS ORDERED: propranolol 10mg tablet PO PRN (17:30)
[2024-09-12 18:21] LABS: ALBUMIN 3.1 G/DL (3.4-5.0); ANION GAP 6 (8-16); BLOOD UREA NITROGEN 13 MG/DL (7-18); CALCIUM 8.1 MG/DL (8.5-10.1); CHLORIDE 110 MMOL/L (99-107); CREATININE 0.93 MG/DL (0.40-0.90); GLUCOSE 123 MG/DL (70-104); POTASSIUM 3.5 MMOL/L (3.5-5.1); SODIUM 145 MMOL/L (135-145); eCRCL 81 ML/MIN; eGFR 68 ML/MIN
[2024-09-12] MEDS: traZODone 50mg tablet PO SCH (21:49)
[2024-09-13 06:39] VITALS: BP 116/80; PULSE 113; TEMP 97.8; O2SAT 99
[2024-09-13] MEDS: LORazepam 1 MG tablet PO STA (07:58)
[2024-09-13] MEDS: divalproex sod 250mg ER (24-hour) tablet PO SCH (07:59)
[2024-09-13] MEDS: buPROPion 100mg tablet PO SCH (08:00)
[2024-09-13 08:18] VITALS: RESP 16
[2024-09-13] MEDS: nicotine 21mg patch - 24 hr TD SCH (09:08)
[2024-09-13] MEDS: acetaminophen 325mg tablet PO PRN (09:20)
[2024-09-13] MEDS: Lumateperone Tosylate (Caplyta) 42 MG CAPSULE PO SCH (09:21)
[2024-09-13] MEDS ORDERED: BUPROPION HCL 150MG XL 24 HR 150 MG TAB PO SCH (10:38)
== END 2024-09-13 13:43 ==
LOC: ER 12:24
DX: F23 Brief psychotic disorder (principal); F15.10 Other stimulant abuse, uncomplicated; F19.10 Other psychoactive substance abuse, uncomplicated; E87.20 Acidosis, unspecified; J45.909 Unspecified asthma, uncomplicated; F32.A Depression, unspecified; Z20.822 Contact with and (suspected) exposure to COVID-19; Z79.899 Other long term (current) drug therapy; Z88.8 Allergy status to other drugs, medicaments and biological substances; Z88.1 Allergy status to other antibiotic agents; Z91.040 Latex allergy status
CPT/HCPCS: 36415; 80048; 80076; 80305; 80329; 81001; 81025; 82550; 82553; 83735; 83874; 84443; 85025; 87811; 96372; 96374; 99291; A6222; A6402; A6449; G0480; J1200; J2060; J3486; J7030; 80320

== ENCOUNTER 2024-09-28 22:18 | Emergency (ER) | payer MEDICARE, MEDICAID ==
[~2024-09-28] VITALS: Ht 167.6 cm; Wt 75.1 kg
[2024-09-28 22:18] VITALS: TEMP 98.2
[~2024-09-28 22:18] MED LIST changes: +BUPR100T13 PO; +DIVA500T9 PO; -LORA-269 PO; +NICO-687 TOP; -NITR100C6 PO; -PHEN-716 PO; +PROP10TA10 PO
[2024-09-28] MEDS: ziprasidone IM 20mg inj **IM only IM ONE (22:41)
[2024-09-29 05:08] VITALS: BP 120/57; PULSE 65; RESP 15; O2SAT 100
== END 2024-09-29 05:09 | disposition home or self-care (01) ==
LOC: ER 22:18
DX: F29 Unspecified psychosis not due to a substance or known physiological condition (principal); J45.909 Unspecified asthma, uncomplicated; F32.A Depression, unspecified; F20.9 Schizophrenia, unspecified; F15.90 Other stimulant use, unspecified, uncomplicated; F19.90 Other psychoactive substance use, unspecified, uncomplicated; Z88.1 Allergy status to other antibiotic agents; Z91.040 Latex allergy status; Z79.899 Other long term (current) drug therapy; Z88.8 Allergy status to other drugs, medicaments and biological substances
CPT/HCPCS: 96372; 99285; J3486

== ENCOUNTER → 2024-10-03 | Emergency (ER) | payer MEDICARE, MEDICAID ==
[~2024-10-03] VITALS: Ht 170.2 cm; Wt 72.7 kg
[2024-10-03 17:54] VITALS: BP 106/85; PULSE 137; RESP 18; O2SAT 97
== END | disposition left against medical advice (07) ==
LOC: ER 17:14
DX: F10.129 Alcohol abuse with intoxication, unspecified (principal); J45.909 Unspecified asthma, uncomplicated; F20.9 Schizophrenia, unspecified; F32.A Depression, unspecified; F15.90 Other stimulant use, unspecified, uncomplicated; Y90.9 Presence of alcohol in blood, level not specified; Z88.1 Allergy status to other antibiotic agents; Z91.040 Latex allergy status; Z79.899 Other long term (current) drug therapy
CPT/HCPCS: 99285